=== PATIENT | female | born 1955 | race Caucasian/White ===

== ENCOUNTER → 2020-01-23 08:48 | Outpatient (BNVA) | payer OTHER, SELFPAY | PROVIDERS: Family Provider Family Medicine; PCP Family Medicine; Visit Provider Dermatology | DX: D18.01 Hemangioma of skin and subcutaneous tissue (principal); I78.1 Nevus, non-neoplastic; L57.0 Actinic keratosis; Z12.83 Encounter for screening for malignant neoplasm of skin | CPT/HCPCS: 17000; 17003; 99203 ==

== ENCOUNTER 2020-03-14 12:51 | Outpatient (CLI) | payer OTHER, SELFPAY ==
--- NOTE | 2020-03-14 13:08 | MM_ITS ---
WS: [id number] BILATERAL SCREENING DIGITAL MAMMOGRAM WITH CAD HISTORY: SCREENING COMPARISON: 02/23/2019 and 02/17/2017 Bilateral CC and MLO views submitted. Computer aided detection analyzed. Breast composition: The breasts are almost entirely fatty. No suspicious masses, microcalcifications or architectural distortion. Benign calcifications RIGHT breast. MM/[place] [id number] IMPRESSION: BI-RADS: 2-Benign FOLLOW UP: 1 Year Follow-up
== END 2020-03-14 12:52 | disposition home or self-care (01) ==
LOC: RADSHAW 12:55
PROVIDERS: PCP Family Medicine; Visit Provider Obstetrics & Gynecology
DX: Z12.31 Encounter for screening mammogram for malignant neoplasm of breast (principal)
CPT/HCPCS: 77067

== ENCOUNTER → 2020-03-21 11:10 | Outpatient (BNVA) | payer OTHER, SELFPAY | PROVIDERS: PCP Family Medicine; Visit Provider Podiatrist Foot & Ankle Surgery | DX: G90.09 Other idiopathic peripheral autonomic neuropathy (principal); M72.2 Plantar fascial fibromatosis; M79.671 Pain in right foot; M79.672 Pain in left foot | CPT/HCPCS: 73630 ==

== ENCOUNTER 2020-03-21 11:57 | Outpatient (CLI) | payer OTHER, SELFPAY ==
--- NOTE | 2020-03-21 12:04 | XRR_ITS ---
PROCEDURE INFORMATION: Exam: XR Right Hand Exam date and time: 03/21/2020 12:18 PM Age: 65 years old Clinical indication: Pain; Hand; Bilateral; Additional info: R hand pain TECHNIQUE: Imaging protocol: XR Right hand. Views: 1 or 2 views. COMPARISON: No relevant prior studies available. FINDINGS: Bones/joints: Normal. Soft tissues: Normal. XR/XR hand RT 2V [id number] IMPRESSION: No acute findings.
--- NOTE | 2020-03-21 12:04 | XRR_ITS ---
PROCEDURE INFORMATION: Exam: XR Left Hand Exam date and time: 03/21/2020 12:18 PM Age: 65 years old Clinical indication: Pain; Hand; Bilateral; Additional info: R hand pain TECHNIQUE: Imaging protocol: XR Left hand. Views: 3 or more views. COMPARISON: No relevant prior studies available. FINDINGS: Bones/joints: Normal. Soft tissues: Normal. XR/XR hand LT 2V [id number] IMPRESSION: No acute findings.
== END 2020-03-21 11:58 | disposition home or self-care (01) ==
LOC: RAD 12:00
PROVIDERS: PCP Family Medicine; Visit Provider Family Medicine
DX: M79.641 Pain in right hand (principal); M79.642 Pain in left hand
CPT/HCPCS: 73120; 88175

== ENCOUNTER → 2020-04-05 14:26 | Outpatient (BNVA) | payer OTHER, SELFPAY | PROVIDERS: PCP Family Medicine; Visit Provider Internal Medicine | DX: M06.9 Rheumatoid arthritis, unspecified (principal); D86.9 Sarcoidosis, unspecified | CPT/HCPCS: 99204 ==

== ENCOUNTER → 2020-04-06 10:36 | Outpatient (BNVA) | payer OTHER, SELFPAY | PROVIDERS: PCP Family Medicine; Visit Provider Internal Medicine | DX: M06.9 Rheumatoid arthritis, unspecified (principal); Z79.899 Other long term (current) drug therapy; Z11.59 Encounter for screening for other viral diseases | CPT/HCPCS: 36415; 80053; 85025; 86704; 86803; 86812; 87340 ==

== ENCOUNTER → 2020-04-18 15:41 | Outpatient (BNVA) | payer OTHER, SELFPAY | PROVIDERS: PCP Family Medicine; Visit Provider Dermatology | DX: D48.9 Neoplasm of uncertain behavior, unspecified (principal) | CPT/HCPCS: 88304 ==

== ENCOUNTER → 2020-04-26 10:58 | Outpatient (BNVA) | payer OTHER, SELFPAY | PROVIDERS: PCP Family Medicine; Visit Provider Internal Medicine | DX: M06.9 Rheumatoid arthritis, unspecified (principal) | CPT/HCPCS: 99213 ==

== ENCOUNTER 2020-05-25 09:57 | Emergency (ER) | payer OTHER, SELFPAY ==
[2020-05-25 10:13] VITALS: BP 124/79; PULSE 74; RESP 12; TEMP 36.6; O2SAT 97; BMI 25.4
[2020-05-25 10:17] VITALS: BP 133/63; PULSE 72; RESP 18; O2SAT 96
--- NOTE | 2020-05-25 10:19 | XR_ITS ---
WS: [id number] PORTABLE CHEST HISTORY: weakness COMPARISON: 05/15/2009 Lungs are clear and well expanded. Mild eventration of the RIGHT hemidiaphragm. No pneumonia. Cardiac size: Normal. Mediastinum/Aorta: Mildly prominent LEFT atrial appendage. No significant mediastinal widening. No osseous abnormality seen. XR/XR chest 1V portable [id number] IMPRESSION: No acute cardiopulmonary disease.
--- NOTE | 2020-05-25 10:19 | CT_ITS ---
WS: [id number] CT HEAD NONCONTRAST HISTORY: weakness TECHNIQUE: Contiguous axial imaging performed through the brain in 2.5 mm imaging. Bone and soft tiss ue windows. Sagittal and coronal reformats reviewed. All CT scans at [facility] use at ast one of these dose optimization techniques: automated exposure control; mA and/or kV adjustment pe r patient size (includes targeted exams where dose is matched to clinical indication); or iterative r econstruction. DLP: 774.9 mGy.cm COMPARISON: None available. No acute intracranial hemorrhage, midline shift or mass effect. Mild atrophy and mild chronic microvascular ischemic disease. No prior infarct. Ventricles: Normal size with no hydrocephalus. Paranasal sinuses: As visualized are clear. Mastoid air cells: Well pneumatized. Calvarium and scalp: Skull is intact with no soft tissue edema or swelling. CT/CT head wo con* [id number] IMPRESSION: 1. No acute intracranial hemorrhage or edema. 2. Mild atrophy and chronic ischemic disease.
--- NOTE | 2020-05-25 10:20 | ECG_ITS ---
[facility] Test Date: 2020-05-25 Pat Name: Yanet Sheth Department: Room: Gender: Female Call Center Assistant: : [id number] Requested By: Aaron Haro Order Number: [id number] Asher MD: Sammie Merrill M.D. Measurements Intervals [place] Rate: 69 P: 47 AK: 189 QRS: 29 QRSD: 102 T: 24 QT: 365 QTc: 394 Interpretive Statements SINUS RHYTHM LOW QRS VOLTAGE IN PRECORDIAL LEADS [QRS DEFLECTION < 1.0 mV IN CHEST LEADS] No previous ECG available for comparison Electronically Signed On 05-25-2020 20:50:56 [employer]EL[employer]ISTER [employer] by Sammie Merrill M.D. [id number]
--- NOTE | 2020-05-25 10:22 | ED_ITS ---
Documented by User: VINCENZO Ansari 05/25/20 16:38 HPI - Weakness General: Chief complaint: Weakness Stated complaint: weakness Time Seen by Provider: 05/25/20 10:19 History of Present Illness: HPI Narrative: Patient is a 65-year-old female comes to the ED with generalized weakness. Symptoms started last night around 9 PM. She says she feels very weak and describes it as a full body weakness. This morning she was trying to put a picture on the wall and then started getting even more weakness and had to sit down. is present and says that she then started crying and getting upset and she seemed to be having trouble speaking and her words were slurred. said that speech symptoms have greatly improved upon arrival here in the ED. She says she has never had an episode like this in the past. She has been working hard in the past couple days remodeling a home and planning a [employer] alliance party. She has been eating and drinking fluids normally. denies any weakness or numbness or tingling to one side of her body. Patient was tested for Covid approximately a week and a half ago and it was negative. Denies fever, chills, chest pain, shortness of breath, abdominal pain, diarrhea, nausea/vomiting, constipation, blood in the stool, dysuria or hematuria. Associated symptoms: Denies chest pain, chills, dysuria, fever(s), headache(s), nausea or vomiting Review of Systems Const: Reports: fatigue (generalized weakness) and malaise; Denies: fever(s), chills or change in appetite Eyes: Denies: change in vision or eye discomfort ENMT: Denies: throat pain, odynophagia, nasal discharge or nasal congestion Card: Denies: chest pain, palpitations, edema, swelling of feet/ankles, dyspnea on exertion or orthopnea Resp: Denies: dyspnea, productive cough or non-productive cough GI: Denies: abdominal pain, nausea, vomiting, diarrhea, constipation or hematochezia : Denies: flank pain, dysuria or hematuria Musc: Denies: neck pain, back pain or extremity swelling Skin/Breast: Denies: rash or new lesions Neuro: Reports: Slurred speech present (resolved here in the ED) and difficulty communicating thoughts; Denies: headache(s), numbness in extremities or weakness in extremities PFSH ED PFS: Medical History No pertinent past medical history Denies diabetes, asthma, hypertension, seizures, DVT/PE. PCP: Dr. Deyr Surgical History H/O repair of rotator cuff Left rotator cuff repair in 2008 S/P section x2-----1978 and 1981---------> first was viral vertical infraumbilical incision and the second one was a Pfannenstiel incision. S/P exploratory laparotomy 12/08/2002---exploratory laparotomy was done secondary to hemoperitoneum identified after the hysterectomy. Postoperative patient had significant drop in hemoglobin and nausea and as a result exploratory laparotomy was performed. The right round ligament had bleeding which was ligated. No active bleeding was noted elsewhere. The abdomen was irrigated and cleaned of clots and blood and patient was taken to the operating room. --------> these records have been scanned into the computer. S/P hysterectomy She had an ABDOMINAL SUPRACERVICAL HYSTERECTOMY WITH BILATERAL SALPINGO- OOPHORECTOMY for fibroids done in [place] in 2002. She states that after discharge she developed pain and bleeding and required multiple blood transfusions and 4 days after her hysterectomy had to be reopened to stop bleeding. She remained in the hospital for about 2 weeks after that with complications in terms of healing and bleeding. She states that a supracervical hysterectomy was performed. Denies any malignancy identified at the time of surgery. Surgery was performed via vertical midline incision. -------> history and physical note from Dr. Odessa Mina obtained-patient had and 15 x 5.6 x 8 cm uterus with menorrhagia causing anemia with a hemoglobin of 9-10. Operative report was reviewed and supracervical abdominal hysterectomy with bilateral salpingo-oophorectomy was performed. Although patient had wanted her cervix removed a supracervical procedure was performed and the endocervical canal was cauterized with the Bovie. --- >Pathology showed a 292 g uterine corpus with multiple fibroids, fetus cystadenofibroma in the right ovary, bilateral tubes showed no diagnostic abnormality and the left ovary showing no diagnostic abnormality S/P inguinal hernia repair Right sided inguinal hernia repair in 1980 S/P tubal ligation Done at time of second in 1981 Family History Mother Hyperlipidemia Brother Hyperlipidemia Diabetes Father Heart disease Denies family history of Colon cancer Ovarian cancer Breast cancer Hypertension Uterine cancer Thyroid condition Social History Smoking and tobacco status: never smoked Alcohol intake: never Marital status: Physical Exam Const: COMMON NORMALS: patient oriented x3 HENMT: COMMON NORMALS: normocephalic HEAD & SCALP: normocephalic MOUTH: Normal oral and palatal mucosa present THROAT: posterior oropharynx normal and uvula midline Eye: COMMON NORMALS: Equal, round and reactive pupils present, EOMs intact bilaterally, conjunctivae normal and normal visual whiting by confrontation CONJUNCTIVA: Yes conjunctivae normal PUPIL: Yes Equal, round and reactive pupils present Neck/C-Spine: COMMON NORMALS: supple GENERAL: Yes normal visual inspection Resp: COMMON NORMALS: normal respiratory effort, No retractions, No use of accessory muscles and clear to auscultation bilaterally AUSCULTATION: clear to auscultation bilaterally Cardio: COMMON NORMALS: regular rate, regular rhythm, S1 normal heart sound present, S2 normal heart sound present, No gallops present (Cardio), No clicks present (Cardio), No murmurs present (Cardio) and Peripheral pulses 2+ throughout RATE: regular rate RHYTHM: regular rhythm HEART SOUNDS: S1 normal heart sound present and S2 normal heart sound present PERIPHERAL PULSES: Peripheral pulses 2+ throughout GI: COMMON NORMALS: Normal to inspection, nondistended, normoactive bowel sounds present, Soft to palpation, non-tender and no masses PALPATION: Yes Soft to palpation : COMMON NORMALS: Yes no CVA tenderness BLADDER/KIDNEY EXAM: Yes no CVA tenderness Back/Pelvis: COMMON NORMALS: no CVA tenderness Extremity: COMMON NORMALS: normal to inspection and no pedal edema Neuro: COMMON NORMALS: patient oriented x3, CN's II-XII intact bilaterally, moves all extremities, no focal motor deficits and no sensory deficits noted SPEECH: speech normal MOTOR EXAM: 5/5 motor strength present throughout and Pronator motor function not present Skin: GENERAL SKIN EXAM: dry skin Course ED course: NIHSS- 0 Reevaluation(s): Reevaluation #1: Patient says she is feeling better and is getting more strength back. About 1/4-1/3 of IV fluids have have completed and she says that she is feeling some improvement. Denies any current neurological symptoms or any trouble with speech. Time: 11:44 Reevaluation #2: After patient received 1 L of IV fluids she was feeling a lot better and was able to get up and walk around on the unit without any problems. Patient is ready to be discharged home. Time: 12:52 Vital Signs: Vital signs: Vital Signs Temperature 97.9 F 05/25/20 10:13 Pulse Rate 78 05/25/20 13:06 Respiratory Rate 16 05/25/20 13:06 Blood Pressure 117/50 05/25/20 13:06 Pulse Oximetry 96 05/25/20 13:06 MDM - Weakness MDM Narrative: Medical decision making narrative: Patient is a 65-year-old female comes to the ED with generalized weakness and slurred speech. Slurred speech resolved upon arrival to ED. Patient tested negative for COVID-19 approximately a week and a half ago. Denies chest pain, shortness of breath. Patient did say that she has been working hard renovating a house and planning a [employer] alliance party and thinks she might have been overworking herself over the past couple days. Neuro exam was normal and showed no deficits. CT of head showed no acute findings. CBC and CMP were unremarkable. Troponin negative and EKG s howed normal sinus rhythm with no ST segment elevation. Chest x-ray showed no acute findings. Influenza negative. Patient was given IV fluids and her generalized weakness did improve greatly. She was able to ambulate around the ED without any problems. Patient has a scheduled appointment with her PCP on Thursday, May 28. I talked with Dr. Clark about patient case she was good with patient being discharged with follow-up with her PCP in a couple days. Return to ED precautions given. Patient shunt told to rest over the weekend and to drink plenty of fluids and stay hydrated. Patient understood and agreed with plan. Lab Data: Attestation: I reviewed the patient's lab results. Labs: Lab Results 05/25/20 05/25/20 05/25/20 Range/Units 09:40 09:40 09:40 WBC 3.6 L (4.0-10.0) 10^3/ uL RBC 4.63 (4.1-5.3) 10^6/u L Hgb 13.7 (11.5-15.3) g/dL Hct 43.5 (37.0-47.0) % MCV 94.0 (81-99) fL MCH 29.6 (28.0-34.0) pg MCHC 31.5 (30.0-36.0) g/dL RDW 13.2 (12.1-15.1) % Plt Count 266 (130-400) 10^3/c mm MPV 10.3 (7.4-10.4) fL Neut % (Auto) 44.9 % Lymph % (Auto) 41.7 % [place] % (Auto) 10.6 % Eos % (Auto) 2.2 % Baso % (Auto) 0.6 % Neut # (Auto) 1.62 L (1.8-7.7) 10^3/u L Lymph # (Auto) 1.5 (0.8-4.8) 10^3/u L [place] # (Auto) 0.4 (0.2-0.9) 10^3/u L Eos # (Auto) 0.1 (0.0-0.8) 10^3/u L Baso # (Auto) 0.0 (0.0-0.1) 10^3/u L Nucleated RBC % (a uto) 0 % Nucleated RBCs # 0.0 /100WBC Sodium 138 (136-145) mmol/L Potassium 4.2 (3.5-5.1) mmol/L Chloride 101 (98-107) mmol/L Carbon Dioxide 27 (22-29) mmol/L Anion Gap 14.2 (5-19) BUN 17 (8-23) mg/dL Creatinine 0.9 (0.5-0.9) mg/dL GFR Calculation 63.0 L (90-130) mL/min Glucose 76 (65-115) mg/dL Calculated Osmolal ity 286 (285-295) mOsm/k g Calcium 9.5 (8.5-10.5) mg/dL Total Bilirubin 0.3 (0.15-1.2) mg/dL AST 17 (0-32) U/L ALT 21 (0-33) U/L Alkaline Phosphata se 74 (35-105) IU/L Troponin T Baselin e 6 (0-10) ng/L Troponin T 120 Min [place] (0-10) ng/L Delta Troponin T (0-10) ABS# Total Protein 6.6 (6.6-8.7) g/dL Albumin 4.2 (3.5-5.2) g/dL Globulin 2.4 (1.3-4.6) g/dL Urine Color (Yellow) Urine Appearance (CLEAR) Urine pH (5-7) Ur Specific Gravit y (1.005-1.030) Urine Protein (Negative) Urine Glucose (UA) (Normal) Urine Ketones (Negative) Urine Blood (Negative) Urine Nitrate (Negative) Urine Bilirubin (Negative) Urine Urobilinogen (Negative) mg/dL Ur Leukocyte Aydee ase (Negative) Urine RBC (0-2) /hpf Urine WBC (0-5) /hpf Ur Squamous Epith Cells (0-5) /hpf Amorphous Sediment Urine Bacteria (NONE) /hpf Influenza Type A A g (Negative) Influenza Type B A g (Negative) 05/25/20 05/25/20 05/25/20 Range/Units 10:44 11:18 12:04 WBC (4.0-10.0) 10^3/ uL RBC (4.1-5.3) 10^6/u L Hgb (11.5-15.3) g/dL Hct (37.0-47.0) % MCV (81-99) fL MCH (28.0-34.0) pg MCHC (30.0-36.0) g/dL RDW (12.1-15.1) % Plt Count (130-400) 10^3/c mm MPV (7.4-10.4) fL Neut % (Auto) % Lymph % (Auto) % [place] % (Auto) % Eos % (Auto) % Baso % (Auto) % Neut # (Auto) (1.8-7.7) 10^3/u L Lymph # (Auto) (0.8-4.8) 10^3/u L [place] # (Auto) (0.2-0.9) 10^3/u L Eos # (Auto) (0.0-0.8) 10^3/u L Baso # (Auto) (0.0-0.1) 10^3/u L Nucleated RBC % (a uto) % Nucleated RBCs # /100WBC Sodium (136-145) mmol/L Potassium (3.5-5.1) mmol/L Chloride (98-107) mmol/L Carbon Dioxide (22-29) mmol/L Anion Gap (5-19) BUN (8-23) mg/dL Creatinine (0.5-0.9) mg/dL GFR Calculation (90-130) mL/min Glucose (65-115) mg/dL Calculated Osmolal ity (285-295) mOsm/k g Calcium (8.5-10.5) mg/dL Total Bilirubin (0.15-1.2) mg/dL AST (0-32) U/L ALT (0-33) U/L Alkaline Phosphata se (35-105) IU/L Troponin T Baselin e (0-10) ng/L Troponin T 120 Min [place] 6.16 (0-10) ng/L Delta Troponin T 0.16 (0-10) ABS# Total Protein (6.6-8.7) g/dL Albumin (3.5-5.2) g/dL Globulin (1.3-4.6) g/dL Urine Color Yellow (Yellow) Urine Appearance Clear (CLEAR) Urine pH 7 (5-7) Ur Specific Gravit y 1.010 (1.005-1.030) Urine Protein Neg (Negative) Urine Glucose (UA) Norm (Normal) Urine Ketones Negative (Negative) Urine Blood Neg (Negative) Urine Nitrate Negative (Negative) Urine Bilirubin Neg (Negative) Urine Urobilinogen Norm (Negative) mg/dL Ur Leukocyte Aydee ase Negative (Negative) Urine RBC None (0-2) /hpf Urine WBC 0-4 H (0-5) /hpf Ur Squamous Epith Cells 0-4 H (0-5) /hpf Amorphous Sediment Not Reportable Urine Bacteria Trace (NONE) /hpf Influenza Type A A g Negative (Negative) Influenza Type B A g Negative (Negative) Imaging Data^: CT Head: Attestation: I personally reviewed and interpreted this imaging study as follows: Radiologist's impression: [address] [address] [address] Scan Report Signed Patient: Yanet Sheth Unit #: [id number] : 1955 Age/Sex: 65 / F ADM Date: 05/25/20 Loc: ER Room/Bed: Attending Dr: Ordering Provider/Ordering MD: Aaron Haro Date of Service: 05/25/20 Procedure(s): CT head wo con* [id number] Accession Number(s): [id number] Report Number: [id number] WS: [id number] CT HEAD NONCONTRAST HISTORY: weakness TECHNIQUE: Contiguous axial imaging performed through the brain in 2.5 mm imaging. Bone and soft tissue windows. Sagittal and coronal reformats reviewed. All CT scans at [facility] use at least one of these dose optimization techniques: automated exposure control; mA and/or kV adjustment per patient size (includes targeted exams where dose is matched to clinical indication); or iterative reconstruction. DLP: 774.9 mGy.cm COMPARISON: None available. No acute intracranial hemorrhage, midline shift or mass effect. Mild atrophy and mild chronic microvascular ischemic disease. No prior infarct. Ventricles: Normal size with no hydrocephalus. Paranasal sinuses: As visualized are clear. Mastoid air cells: Well pneumatized. Calvarium and scalp: Skull is intact with no soft tissue edema or swelling. CT/CT head wo con* [id number] IMPRESSION: 1. No acute intracranial hemorrhage or edema. 2. Mild atrophy and chronic ischemic disease. Dictated By: Kinza Jon DO Signed By: Kinza Jon DO Signed Date/Time: 05/25/20 1100 DD/ 1058 CXR: Attestation: I personally reviewed and interpreted this imaging study as follows: Radiologist's impression: [facility] [address] [place] [address] XRay Report Signed Patient: Yanet Sheth Unit #: [id number] : 1955 Age/Sex: 65 / F ADM Date: 05/25/20 Loc: ER Room/Bed: Attending Dr: Ordering Provider/Ordering MD: Aaron Haro Date of Service: 05/25/20 Procedure(s): XR chest 1V portable [id number] Accession Number(s): [id number] Report Number: [id number] WS: [id number] PORTABLE CHEST HISTORY: weakness COMPARISON: 05/15/2009 Lungs are clear and well expanded. Mild eventration of the RIGHT hemidiaphragm. No pneumonia. Cardiac size: Normal. Mediastinum/Aorta: Mildly prominent LEFT atrial appendage. No significant mediastinal widening. No osseous abnormality seen. XR/XR chest 1V portable [id number] IMPRESSION: No acute cardiopulmonary disease. Dictated By: Kinza Jon DO Signed By: Kinza Jon DO Signed Date/Time: 05/25/20 1032 DD/ 1031 EKG Data^: EKG 1: Attestation: I personally reviewed and interpreted this EKG as follows: EKG interpretation date: 05/25/20 Interpretation: Normal sinus rhythm, 69 bpm, no ST segment elevation or depression seen. Discharge Plan Discharge Patient Disposition: Home Clinical Impression: Generalized weakness Condition: Stable Prescriptions: No Action carbamazepine 200 mg tablet 400 mg PO BID 30 Days Qty: 120 RF: 3 azelastine 137 mcg (0.1 %) aerosol,spray 1 spray INTRANASAL BID RF: 0 Premarin 0.3 mg tablet 0.3 mg PO DAILY RF: 0 fluticasone propionate [Flonase Allergy Relief] 50 mcg/actuation spray,suspension 1 spray INTRANASAL DAILY RF: 0 diclofenac sodium [Voltaren] 1 % gel 2 gm TOPICAL BID RF: 0 aspirin [Adult Aspirin Regimen] 81 mg tablet,delayed release (DR/EC) 81 mg PO DAILY RF: 0 mupirocin 2 % ointment 1 applic topical BID Qty: 22 RF: 1 Discharge Orders: Discharge ED (Routine); Ordered 05/25/20 Ordered By: Aaron Haro Referrals: Sandeep Dyer MD [Primary Care Provider] - Discharge Diet: Regular Discharge Activity: Increase activity as tolerated Patient Instructions: Weakness (ED), Weakness (Generalized) Activity Restrictions/Additional Instructions: Follow-up with PCP at your scheduled appointment on Thursday, May 28. C ontinue taking home medications as prescribed. Rest over the weekend and make sure you are drinking plenty of fluids and staying hydrated. Return to the ER or your medical provider if condition worsens or symptoms return. Please read and understand discharge instructions. If any questions, please ask. Coding Level of Care Code ED Team Facilitator for Chg Fwd Exam Comprehensive Documented by User: Vika Clark MD 05/25/20 14:09 HPI - Weakness General: Chief complaint: Weakness Stated complaint: weakness Time Seen by Provider: 05/25/20 10:19 PFSH ED PFSH: Medical History No pertinent past medical history Denies diabetes, asthma, hypertension, seizures, DVT/PE. PCP: Dr. Dyer Surgical History H/O repair of rotator cuff Left rotator cuff repair in 2008 S/P section x2-----1978 and 1981---------> first was viral vertical infraumbilical incision and the second one was a Pfannenstiel incision. S/P exploratory laparotomy 12/08/2002---exploratory laparotomy was done secondary to hemoperitoneum identified after the hysterectomy. Postoperative patient had significant drop in hemoglobin and nausea and as a result exploratory laparotomy was performed. The right round ligament had bleeding which was ligated. No active bleeding was noted elsewhere. The abdomen was irrigated and cleaned of clots and blood and patient was taken to the operating room. --------> these records have been scanned into the computer. S/P hysterectomy She had an ABDOMINAL SUPRACERVICAL HYSTERECTOMY WITH BILATERAL SALPINGO- OOPHORECTOMY for fibroids done in [place] in 2002. She states that after discharge she developed pain and bleeding and required multiple blood transfusions and 4 days after her hysterectomy had to be reopened to stop bleeding. She remained in the hospital for about 2 weeks after that with complications in terms of healing and bleeding. She states that a supracervical hysterectomy was performed. Denies any malignancy identified at the time of surgery. Surgery was performed via vertical midline incision. -------> history and physical note from Dr. Odessa Mina obtained-patient had and 15 x 5.6 x 8 cm uterus with menorrhagia causing anemia with a hemoglobin of 9-10. Operative report was reviewed and supracervical abdominal hyster ectomy with bilateral salpingo-oophorectomy was performed. Although patient had wanted her cervix removed a supracervical procedure was performed and the endocervical canal was cauterized with the Bovie. --- >Pathology showed a 292 g uterine corpus with multiple fibroids, fetus cystadenofibroma in the right ovary, bilateral tubes showed no diagnostic abnormality and the left ovary showing no diagnostic abnormality S/P inguinal hernia repair Right sided inguinal hernia repair in 1980 S/P tubal ligation Done at time of second in 1981 Family History Mother Hyperlipidemia Brother Hyperlipidemia Diabetes Father Heart disease Denies family history of Colon cancer Ovarian cancer Breast cancer Hypertension Uterine cancer Thyroid condition Social History Smoking and tobacco status: never smoked Alcohol intake: never Marital status: Course Reevaluation(s): Reevaluation #1: I discussed this patient with Aaron - tiffanie H and P, labs, imaging. Agree with plan to discharge and encourage close outpatient evaluation - return if recurrent symptoms. Vital Signs: Vital signs: Vital Signs Temperature 97.9 F 05/25/20 10:13 Pulse Rate 78 05/25/20 13:06 Respiratory Rate 16 05/25/20 13:06 Blood Pressure 117/50 05/25/20 13:06 Pulse Oximetry 96 05/25/20 13:06 MDM - Weakness Lab Data: Labs: Lab Results 05/25/20 05/25/20 05/25/20 Range/Units 09:40 09:40 09:40 WBC 3.6 L (4.0-10.0) 10^3/ uL RBC 4.63 (4.1-5.3) 10^6/u L Hgb 13.7 (11.5-15.3) g/dL Hct 43.5 (37.0-47.0) % MCV 94.0 (81-99) fL MCH 29.6 (28.0-34.0) pg MCHC 31.5 (30.0-36.0) g/dL RDW 13.2 (12.1-15.1) % Plt Count 266 (130-400) 10^3/c mm MPV 10.3 (7.4-10.4) fL Neut % (Auto) 44.9 % Lymph % (Auto) 41.7 % [place] % (Auto) 10.6 % Eos % (Auto) 2.2 % Baso % (Auto) 0.6 % Neut # (Auto) 1.62 L (1.8-7.7) 10^3/u L Lymph # (Auto) 1.5 (0.8-4.8) 10^3/u L [place] # (Auto) 0.4 (0.2-0.9) 10^3/u L Eos # (Auto) 0.1 (0.0-0.8) 10^3/u L Baso # (Auto) 0.0 (0.0-0.1) 10^3/u L Nucleated RBC % (a uto) 0 % Nucleated RBCs # 0.0 /100WBC Sodium 138 (136-145) mmol/L Potassium 4.2 (3.5-5.1) mmol/L Chloride 101 (98-107) mmol/L Carbon Dioxide 27 (22-29) mmol/L Anion Gap 14.2 (5-19) BUN 17 (8-23) mg/dL Creatinine 0.9 (0.5-0.9) mg/dL GFR Calculation 63.0 L (90-130) mL/min Glucose 76 (65-115) mg/dL Calculated Osmolal ity 286 (285-295) mOsm/k g Calcium 9.5 (8.5-10.5) mg/dL Total Bilirubin 0.3 (0.15-1.2) mg/dL AST 17 (0-32) U/L ALT 21 (0-33) U/L Alkaline Phosphata se 74 (35-105) IU/L Troponin T Baselin e 6 (0-10) ng/L Troponin T 120 Min [place] (0-10) ng/L Delta Troponin T (0-10) ABS# Total Protein 6.6 (6.6-8.7) g/dL Albumin 4.2 (3.5-5.2) g/dL Globulin 2.4 (1.3-4.6) g/dL Urine Color (Yellow) Urine Appearance (CLEAR) Urine pH (5-7) Ur Specific Gravit y (1.005-1.030) Urine Protein (Negative) Urine Glucose (UA) (Normal) Urine Ketones (Negative) Urine Blood (Negative) Urine Nitrate (Negative) Urine Bilirubin (Negative) Urine Urobilinogen (Negative) mg/dL Ur Leukocyte Aydee ase (Negative) Urine RBC (0-2) /hpf Urine WBC (0-5) /hpf Ur Squamous Epith Cells (0-5) /hpf Amorphous Sediment Urine Bacteria (NONE) /hpf Influenza Type A A g (Negative) Influenza Type B A g (Negative) 05/25/20 05/25/20 05/25/20 Range/Units 10:44 11:18 12:04 WBC (4.0-10.0) 10^3/ uL RBC (4.1-5.3) 10^6/u L Hgb (11.5-15.3) g/dL Hct (37.0-47.0) % MCV (81-99) fL MCH (28.0-34.0) pg MCHC (30.0-36.0) g/dL RDW (12.1-15.1) % Plt Count (130-400) 10^3/c mm MPV (7.4-10.4) fL Neut % (Auto) % Lymph % (Auto) % [place] % (Auto) % Eos % (Auto) % Baso % (Auto) % Neut # (Auto) (1.8-7.7) 10^3/u L Lymph # (Auto) (0.8-4.8) 10^3/u L [place] # (Auto) (0.2-0.9) 10^3/u L Eos # (Auto) (0.0-0.8) 10^3/u L Baso # (Auto) (0.0-0.1) 10^3/u L Nucleated RBC % (a uto) % Nucleated RBCs # /100WBC Sodium (136-145) mmol/L Potassium (3.5-5.1) mmol/L Chloride (98-107) mmol/L Carbon Dioxide (22-29) mmol/L Anion Gap (5-19) BUN (8-23) mg/dL Creatinine (0.5-0.9) mg/dL GFR Calculation (90-130) mL/min Glucose (65-115) mg/dL Calculated Osmolal ity (285-295) mOsm/k g Calcium (8.5-10.5) mg/dL Total Bilirubin (0.15-1.2) mg/dL AST (0-32) U/L ALT (0-33) U/L Alkaline Phosphata se (35-105) IU/L Troponin T Baselin e (0-10) ng/L Troponin T 120 Min [place] 6.16 (0-10) ng/L Delta Troponin T 0.16 (0-10) ABS# Total Protein (6.6-8.7) g/dL Albumin (3.5-5.2) g/dL Globulin (1.3-4.6) g/dL Urine Color Yellow (Yellow) Urine Appearance Clear (CLEAR) Urine pH 7 (5-7) Ur Specific Gravit y 1.010 (1.005-1.030) Urine Protein Neg (Negative) Urine Glucose (UA) Norm (Normal) Urine Ketones Negative (Negative) Urine Blood Neg (Negative) Urine Nitrate Negative (Negative) Urine Bilirubin Neg (Negative) Urine Urobilinogen Norm (Negative) mg/dL Ur Leukocyte Aydee ase Negative (Negative) Urine RBC None (0-2) /hpf Urine WBC 0-4 H (0-5) /hpf Ur Squamous Epith Cells 0-4 H (0-5) /hpf Amorphous Sediment Not Reportable Urine Bacteria Trace (NONE) /hpf Influenza Type A A g Negative (Negative) Influenza Type B A g Negative (Negative) Discharge Plan Discharge Patient Disposition: Home Clinical Impression: Generalized weakness Condition: Stable Prescriptions: No Action carbamazepine 200 mg tablet 400 mg PO BID 30 Days Qty: 120 RF: 3 azelastine 137 mcg (0.1 %) aerosol,spray 1 spray INTRANASAL BID RF: 0 Premarin 0.3 mg tablet 0.3 mg PO DAILY RF: 0 fluticasone propionate [Flonase Allergy Relief] 50 mcg/actuation spray,suspension 1 spray INTRANASAL DAILY RF: 0 diclofenac sodium [Voltaren] 1 % gel 2 gm TOPICAL BID RF: 0 aspirin [Adult Aspirin Regimen] 81 mg tablet,delayed release (DR/EC) 81 mg PO DAILY RF: 0 mupirocin 2 % ointment 1 applic topical BID Qty: 22 RF: 1 Discharge Orders: Discharge ED (Routine); Ordered 05/25/20 Ordered By: Aaron Haro Referrals: Sandeep Dyer MD [Primary Care Provider] - Discharge Diet: Regular Discharge Activity: Increase activity as tolerated Patient Instructions: Weakness (ED), Weakness (Generalized) Activity Restrictions/Additional Instructions: Follow-up with PCP at your scheduled appointment on Thursday, May 28. Continue taking home medications as prescribed. Rest over the weekend and make sure you are drinking plenty of fluids and staying hydrated. Return to the ER or your medical provider if condition worsens or symptoms return. Please read and understand discharge instructions. If any questions, please ask. Coding Level of Care Code ED Team Facilitator for Chg Fwd Exam Comprehensive
[2020-05-25 10:35] LABS: Basophils % 0.6 %; Eosinophils # 0.1 10^3/uL (0.0-0.8); Eosinophils % 2.2 %; Hematocrit 43.5 % (37.0-47.0); Hemoglobin 13.7 g/dL (11.5-15.3); Lymphocytes # 1.5 10^3/uL (0.8-4.8); Lymphocytes % 41.7 %; Mean Corpuscular HGB Conc 31.5 g/dL (30.0-36.0); Mean Corpuscular Hemoglobin 29.6 pg (28.0-34.0); Mean Platelet Volume 10.3 fL (7.4-10.4); Monocytes # 0.4 10^3/uL (0.2-0.9); Monocytes % 10.6 %; Neutrophils # 1.62 10^3/uL (1.8-7.7); Neutrophils % 44.9 %; Nucleated Red Blood Cells % 0 %; Platelet Count 266 10^3/cmm (130-400); Red Blood Count 4.63 10^6/uL (4.1-5.3); Red Cell Distribution Width 13.2 % (12.1-15.1); White Blood Count 3.6 10^3/uL (4.0-10.0)
[2020-05-25 10:47] VITALS: BP 133/63; PULSE 71; RESP 18; O2SAT 97
[2020-05-25 10:56] LABS: Alanine Aminotransferase 21 U/L (0-33); Albumin Level 4.2 g/dL (3.5-5.2); Alkaline Phosphatase 74 IU/L (35-105); Anion Gap 14.2 (5-19); Aspartate Amino Transferase 17 U/L (0-32); Blood Urea Nitrogen 17 mg/dL (8-23); Calcium 9.5 mg/dL (8.5-10.5); Carbon Dioxide 27 mmol/L (22-29); Chloride 101 mmol/L (98-107); Globulin 2.4 g/dL (1.3-4.6); Glucose 76 mg/dL (65-115); Osmolality Calculated 286 mOsm/kg (285-295); Potassium 4.2 mmol/L (3.5-5.1); Sodium 138 mmol/L (136-145); Total Bilirubin 0.3 mg/dL (0.15-1.2); Total Protein 6.6 g/dL (6.6-8.7)
[2020-05-25 11:00] LABS: Troponin(5th) Baseline 6 ng/L (0-10)
[2020-05-25] MEDS: sodium chloride 0.9% 1,000 ML 999 ML IV (11:25)
[2020-05-25 11:26] LABS: Influenza A by IFA Negative (Negative); Influenza B by IFA Negative (Negative)
[2020-05-25 11:56] LABS: Add Urine Culture? No; Bacteria Urine TRACE /hpf; Bilirubin Urine Neg (Negative); Blood Urine Neg (Negative); Glucose Urine UA Norm (Normal); Ketones Urine Negative (Negative); Leukocyte Esterase Urine Negative (Negative); Nitrate Urine Negative (Negative); Protein Urine Neg (Negative); Squamous Epithelial Cell Urine 0-4 /hpf (0-5); Urine Appearance Clear (CLEAR); Urine Color Yellow (Yellow); Urobilinogen Urine Norm (Negative); WBC Urine 0-4 /hpf (0-5); pH Urine 7 (5-7)
[2020-05-25 12:28] LABS: Troponin 5 2HR 6.16 ng/L (0-10); Troponin 5 2HR Delta 0.16 ABS# (0-10)
[2020-05-25 13:06] VITALS: BP 117/50; PULSE 78; RESP 16; O2SAT 96
--- NOTE | 2020-05-26 06:34 | PC.NURSE ---
Lab called 1 of 2 blood culture bottles is positive with gram + cocci in clusters. Notified Dr. Lloyd. Ordered to wait for final culture result
== END 2020-05-25 13:07 | disposition home or self-care (01) ==
PROVIDERS: Emergency Provider Physician Assistant; PCP Family Medicine
DX: R53.1 Weakness (principal)
CPT/HCPCS: 12345; 70450; 71045; 80053; 81001; 84484; 85025; 87040; 87205; 87804; 93005; 96360; 99282; 99283; J7030

== ENCOUNTER 2020-09-10 07:50 | Outpatient (CLI) | payer OTHER, SELFPAY ==
--- NOTE | 2020-09-10 07:54 | MR_ITS ---
WS: [id number] MRI BRAIN WITH AND WITHOUT CONTRAST HISTORY: ATYPICAL headache, chronic NECK PAIN, WEAKNESS OF LIMB; COMPARISON: CT head 05/25/2020 TECHNIQUE: Multiplanar imaging performed through the brain with MultiHance 13 ml's IV. No acute infarcts are seen. Mckinley-white matter differentiation is well preserved. No susceptibility artifacts or prior lacunar infarcts. Ventricles and extra-axial spaces are normal. Clivus and pituitary gland are normal. Visualized posterior fossa and brainstem are also normal. Postcontrast images are negative for masses or vascular malformations. Dural venous sinuses are normal. Paranasal sinuses: Well aerated with no significant disease. Mastoid air cells: Normal. Calvarium and scalp: Normal. MR/MR head wo/w con [id number] IMPRESSION: 1. Normal MRI brain with contrast. 2. No significant sinus disease.
--- NOTE | 2020-09-10 07:54 | MR_ITS ---
WS: [id number] MRI CERVICAL SPINE NONCONTRAST HISTORY: ATYPICAL headache, chronic NECK PAIN, WEAKNESS OF LIMB; COMPARISON: None available. Technique: Multiplanar, multisequence noncontrast imaging of the cervical spine. Very slight increase in the cervical lordosis. Mild RIGHT curvature cervical spine. Disc spaces are mildly narrowed and desiccated. Most significant narrowing is at C5-6 and C6-7. No fr actures or marrow edema. Craniocervical junction, C1 and C2 relationship, odontoid process and soft tissues are normal. C2-C3: Normal. C3-C4: Normal. C4-C5: Very mild osteophytic ridging and disc bulging. Slight encroachment upon the ventral thecal sa c and mild narrowing of the RIGHT foramen. No high-grade stenosis. C5-C6: Moderate annular disc bulging with a central disc protrusion and osteophytic ridging. Mild raul tral stenosis with moderate bilateral foraminal stenosis. C6-C7: Diffuse annular disc bulging and osteophytic ridging with a central disc protrusion and annula r fissure. There is slight disc contact upon the ventral cord with bilateral foraminal stenosis due t o disc osteophyte disease. C7-T1: Central disc protrusion is small. No cord contact. Large RIGHT thyroid nodule with central necrosis measures 2.4 x 1.9 cm. Nodule extends over length of 3.5 cm. MR/MR cervical spin wo con* [id number] IMPRESSION: 1. 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 2. Large RIGHT thyroid nodule. Recommend ultrasound follow-up for further italo acterization. 3. Mild RIGHT foraminal narrowing at C4-5.
[2020-09-10 09:30] LABS: Blood Urea Nitrogen 17 mg/dL (8-23); Glomerular Filtration Rate 84.2 mL/min (90-130)
[2020-09-10] MEDS: gadobenate dimeglumine 20 mL vial IV (09:33)
== END 2020-09-10 07:51 | disposition home or self-care (01) ==
PROVIDERS: PCP Family Medicine; Visit Provider Family Medicine
DX: R51.9 Headache, unspecified (principal); M54.2 Cervicalgia
CPT/HCPCS: 70553; 72141; 82565; 84520; A9577

== ENCOUNTER → 2020-09-11 08:06 | Outpatient (BNVA) | payer OTHER, SELFPAY | PROVIDERS: PCP Family Medicine; Visit Provider Specialist | DX: R51.9 Headache, unspecified (principal); M54.2 Cervicalgia; R29.898 Other symptoms and signs involving the musculoskeletal system | CPT/HCPCS: 95913 ==

== ENCOUNTER 2020-10-03 08:25 | Outpatient (CLI) | payer OTHER, SELFPAY ==
--- NOTE | 2020-10-03 08:32 | US_ITS ---
WS: [id number] ULTRASOUND THYROID TECHNIQUE: Ultrasound of the thyroid. CLINICAL INFORMATION: THYROID NODULE COMPARISON: None. FINDINGS: Thyroid: Right and left thyroid lobes are normal in size and echotexture. Bilateral thyroid nodules. Right thyroid lobe: 3.5 cm x 2.1 cm x 2.0 cm Solid heterogeneous right thyroid nodule measures 2.1 x 3.3 x 2.0 cm Left thyroid lobe: 4.9 cm x 1.2 cm x 2.6 cm. Largest left solid thyroid nodule measures 1.1 x 2.5 x 1.6 cm Isthmus: 0.3 mm. Cervical lymphadenopathy: None. US/US thyroid [id number] IMPRESSION: 1. Heterogeneous thyroid echotexture bilaterally. 2. Large solid heterogeneous right thyroid nodule measuring 2.1 x 3.3 x 2.0 CM . Recommend further evaluation with ultrasound-guided FNA. 3. Dominant left-sided nodule measures 1.1 x 2.5 x 1.6 cm. Recommend 12 month follow-up.
== END 2020-10-03 08:26 | disposition home or self-care (01) ==
LOC: US 08:28
PROVIDERS: PCP Family Medicine; Visit Provider Family Medicine
DX: E04.1 Nontoxic single thyroid nodule (principal)
CPT/HCPCS: 76536

== ENCOUNTER 2020-11-07 10:46 | Outpatient (CLI) | payer OTHER, SELFPAY ==
[2020-11-07 11:07] LABS: Basophils % 0.5 %; Eosinophils # 0.2 10^3/uL (0.0-0.8); Eosinophils % 2.9 %; Hematocrit 43.3 % (37.0-47.0); Hemoglobin 13.4 g/dL (11.5-15.3); Lymphocytes % 35.7 %; Mean Corpuscular HGB Conc 30.9 g/dL (30.0-36.0); Mean Corpuscular Hemoglobin 29.9 pg (28.0-34.0); Mean Corpuscular Volume 96.7 fL (81-99); Mean Platelet Volume 9.9 fL (7.4-10.4); Monocytes # 0.4 10^3/uL (0.2-0.9); Monocytes % 6.8 %; Neutrophils # 2.99 10^3/uL (1.8-7.7); Neutrophils % 53.9 %; Nucleated Red Blood Cells % 0 %; Platelet Count 232 10^3/cmm (130-400); Red Blood Count 4.48 10^6/uL (4.1-5.3); Red Cell Distribution Width 12.5 % (12.1-15.1); White Blood Count 5.6 10^3/uL (4.0-10.0)
[2020-11-07 11:27] LABS: Alanine Aminotransferase 9 U/L (0-33); Alkaline Phosphatase 73 IU/L (35-105); Anion Gap 10.6 (5-19); Aspartate Amino Transferase 11 U/L (0-32); Blood Urea Nitrogen 16 mg/dL (8-23); C Reactive Protein 3.6 mg/L (0.0-4.9); Carbon Dioxide 29 mmol/L (22-29); Chloride 103 mmol/L (98-107); Globulin 2.8 g/dL (1.3-4.6); Glomerular Filtration Rate 84.2 mL/min (90-130); Glucose 97 mg/dL (65-115); Osmolality Calculated 287 mOsm/kg (285-295); Potassium 4.6 mmol/L (3.5-5.1); Sodium 138 mmol/L (136-145); Total Bilirubin 0.2 mg/dL (0.15-1.2); Total Protein 6.8 g/dL (6.6-8.7)
[2020-11-07 13:30] LABS: Erythrocyte Sedimentation Rate 6 mm/hr (0-15)
== END 2020-11-07 10:47 | disposition home or self-care (01) ==
PROVIDERS: PCP Family Medicine; Visit Provider Internal Medicine
DX: M06.9 Rheumatoid arthritis, unspecified (principal); Z79.899 Other long term (current) drug therapy
CPT/HCPCS: 36415; 80053; 85025; 85651; 86140

== ENCOUNTER → 2020-11-08 10:35 | Outpatient (BNVA) | payer OTHER, SELFPAY | PROVIDERS: PCP Family Medicine; Visit Provider Internal Medicine | DX: M06.9 Rheumatoid arthritis, unspecified (principal); Z79.899 Other long term (current) drug therapy; M50.90 Cervical disc disorder, unspecified, unspecified cervical region; R29.898 Other symptoms and signs involving the musculoskeletal system; M48.00 Spinal stenosis, site unspecified | CPT/HCPCS: 99213; 99214 ==

== ENCOUNTER → 2020-11-23 08:42 | Outpatient (BNVA) | payer OTHER, SELFPAY | PROVIDERS: PCP Family Medicine; Referring Provider Internal Medicine; Visit Provider Anesthesiology Pain Medicine | DX: G89.29 Other chronic pain (principal); M54.16 Radiculopathy, lumbar region; M47.816 Spondylosis without myelopathy or radiculopathy, lumbar region; M54.12 Radiculopathy, cervical region; M50.90 Cervical disc disorder, unspecified, unspecified cervical region | CPT/HCPCS: 99205 ==

== ENCOUNTER 2020-12-04 07:35 | Outpatient (RCR) | payer OTHER, SELFPAY | END 2020-12-12 23:59 | disposition home or self-care (01) | LOC: SPT 07:35 | PROVIDERS: PCP Family Medicine; Referring Provider Anesthesiology Pain Medicine; Visit Provider Anesthesiology Pain Medicine | DX: G89.29 Other chronic pain (principal); M54.2 Cervicalgia | CPT/HCPCS: 62321; 97110; 97140; 97162; G0283; J1100 ==

== ENCOUNTER 2020-12-12 10:40 | Outpatient (CLI) | payer OTHER, SELFPAY ==
--- NOTE | 2020-12-12 10:58 | MR_ITS ---
WS: [id number] MRI LUMBAR SPINE NONCONTRAST HISTORY: RADICULOPATHY, LUMBAR REGION COMPARISON: None available. TECHNIQUE: Sagittal and axial multisequence imaging is submitted. Mild LEFT curvature thoracic and RIGHT curvature lumbar spine. Posterior lumbar alignment is normal. Moderate disc space narrowing and desiccation at L3-4 through L5-S1. No fractures. Conus terminates normally at L1-2 disc level. L1-L2: Very mild narrowing of the LEFT foramen with no significant stenosis. L2-L3: Mild annular disc bulging with a moderate size central disc protrusion deforming the ventral t hecal sac. Mild narrowing of the foramen. L3-L4: Moderate annular disc bulge with a central disc protrusion and annular fissure. Mild central s tenosis. Mild osteophytic ridging with facet and ligamentum flavum arthritis. Disc and osteophyte con tacts the RIGHT L4 nerve root in the lateral recess and subarticular foramen. There is additional mil d encroachment upon the LEFT L4 nerve root. Mild foraminal stenosis. L4-L5: Mild diffuse annular disc bulging with ligamentum flavum hypertrophy and facet arthritis. Mild central canal stenosis. Mild narrowing of the subarticular recesses with mild stenosis and encroachm ent upon the L5 nerve roots bilaterally. L5-S1: Mild annular disc bulging with a central shallow disc protrusion. No contact on the S1 nerve r oots. Disc protrusion in the RIGHT foramen contacting but not displacing the RIGHT L5 nerve root. Visualized retroperitoneal structures are unremarkable. RIGHT kidney is rotated anteriorly. MR/MR lumbar spine wo con* [id number] IMPRESSION: 1. Mild central stenosis at L3-4 and L4-5. 2. Central disc protrusion at L3-4 with bilateral disc osteophyte contact on t he L4 nerve roots in the lateral recesses and subarticular foramen, RIGHT great er than LEFT. 3. Mild narrowing of the subarticular recesses at L4-5 with mild stenosis and encroachment upon the L5 nerve roots. 4. Mild disc osteophyte contact on the RIGHT L5 nerve root in the far lateral foramen of L5-S1. 5. Moderate central disc protrusion at L2-3.
== END 2020-12-12 10:41 | disposition home or self-care (01) ==
LOC: RADWPI 10:40
PROVIDERS: PCP Family Medicine; Visit Provider Anesthesiology Pain Medicine
DX: M54.16 Radiculopathy, lumbar region (principal); M48.061 Spinal stenosis, lumbar region without neurogenic claudication; M51.26 Other intervertebral disc displacement, lumbar region; M25.78 Osteophyte, vertebrae
CPT/HCPCS: 72148

== ENCOUNTER 2020-12-13 06:00 | Outpatient (RCR) | payer OTHER, SELFPAY | END 2021-01-12 23:59 | disposition home or self-care (01) | LOC: SPT 06:00 | PROVIDERS: PCP Family Medicine; Referring Provider Anesthesiology Pain Medicine; Visit Provider Anesthesiology Pain Medicine | DX: G89.29 Other chronic pain (principal); M54.2 Cervicalgia | CPT/HCPCS: 97110 ==

== ENCOUNTER → 2020-12-19 10:47 | Outpatient (BNVA) | payer OTHER, SELFPAY | PROVIDERS: PCP Family Medicine; Visit Provider Anesthesiology Pain Medicine | DX: G89.29 Other chronic pain (principal); M54.12 Radiculopathy, cervical region; M50.90 Cervical disc disorder, unspecified, unspecified cervical region; M54.16 Radiculopathy, lumbar region; M79.642 Pain in left hand; M79.641 Pain in right hand | CPT/HCPCS: 99214 ==

== ENCOUNTER 2021-01-13 06:00 | Outpatient (RCR) | payer OTHER, SELFPAY | END 2021-02-12 23:59 | disposition home or self-care (01) | LOC: SPT 06:00 | PROVIDERS: PCP Family Medicine; Referring Provider Anesthesiology Pain Medicine; Visit Provider Anesthesiology Pain Medicine | DX: G89.29 Other chronic pain (principal); M54.2 Cervicalgia | CPT/HCPCS: 97110 ==

== ENCOUNTER → 2021-02-13 10:24 | Outpatient (BNVA) | payer MEDICARE, OTHER, SELFPAY | PROVIDERS: PCP Family Medicine; Visit Provider Anesthesiology Pain Medicine | DX: G89.29 Other chronic pain (principal); M54.12 Radiculopathy, cervical region; M50.90 Cervical disc disorder, unspecified, unspecified cervical region; M54.16 Radiculopathy, lumbar region | CPT/HCPCS: 99214 ==

== ENCOUNTER → 2021-03-14 10:42 | Outpatient (BNVA) | payer MEDICARE, OTHER, SELFPAY | PROVIDERS: PCP Family Medicine; Visit Provider Anesthesiology Pain Medicine | DX: G89.29 Other chronic pain (principal); M54.12 Radiculopathy, cervical region; M50.90 Cervical disc disorder, unspecified, unspecified cervical region; M54.16 Radiculopathy, lumbar region; M79.601 Pain in right arm; M79.604 Pain in right leg; M79.605 Pain in left leg | CPT/HCPCS: 99213 ==

== ENCOUNTER → 2021-04-09 10:28 | Outpatient (BNVA) | payer MEDICARE, OTHER, SELFPAY | PROVIDERS: PCP Family Medicine; Visit Provider Internal Medicine | DX: M06.9 Rheumatoid arthritis, unspecified (principal); Z79.899 Other long term (current) drug therapy | CPT/HCPCS: 36415 ==

== ENCOUNTER → 2021-04-10 16:49 | Outpatient (BNVA) | payer MEDICARE, OTHER, SELFPAY | PROVIDERS: PCP Family Medicine; Visit Provider Internal Medicine | DX: M06.9 Rheumatoid arthritis, unspecified (principal); Z79.899 Other long term (current) drug therapy | CPT/HCPCS: 80053; 85025; 85651; 86140 ==

== ENCOUNTER → 2021-04-15 10:15 | Outpatient (BNVA) | payer MEDICARE, OTHER, SELFPAY | PROVIDERS: PCP Family Medicine; Visit Provider Internal Medicine | DX: M06.9 Rheumatoid arthritis, unspecified (principal); M50.90 Cervical disc disorder, unspecified, unspecified cervical region; R53.1 Weakness | CPT/HCPCS: 99214 ==

== ENCOUNTER 2021-04-23 12:12 | Outpatient (CLI) | payer MEDICARE, OTHER, SELFPAY ==
[2021-04-23 13:15] LABS: Anion Gap 14.6 (5-19); Blood Urea Nitrogen 11 mg/dL (8-23); Carbon Dioxide 25 mmol/L (22-29); Chloride 100 mmol/L (98-107); Glomerular Filtration Rate 100.3 mL/min (90-130); Glucose 84 mg/dL (65-115); Osmolality Calculated 279 mOsm/kg (285-295); Potassium 4.6 mmol/L (3.5-5.1); Sodium 135 mmol/L (136-145)
[2021-04-25 19:25] LABS: Erythrocyte Sedimentation Rate 9 mm/hr (0-15)
== END 2021-04-23 12:13 | disposition home or self-care (01) ==
LOC: LAB 12:17
PROVIDERS: PCP Family Medicine; Visit Provider Internal Medicine
DX: M06.9 Rheumatoid arthritis, unspecified (principal); Z79.899 Other long term (current) drug therapy
CPT/HCPCS: 36415; 80048; 85651

== ENCOUNTER → 2021-05-30 09:12 | Outpatient (BNVA) | payer MEDICARE, OTHER, SELFPAY | PROVIDERS: PCP Family Medicine; Visit Provider Anesthesiology Pain Medicine | DX: G89.29 Other chronic pain (principal); M25.562 Pain in left knee; M19.90 Unspecified osteoarthritis, unspecified site; M54.12 Radiculopathy, cervical region; M50.90 Cervical disc disorder, unspecified, unspecified cervical region; M79.601 Pain in right arm; M54.16 Radiculopathy, lumbar region | CPT/HCPCS: 99214 ==

== ENCOUNTER 2021-05-31 10:06 | Outpatient (CLI) | payer MEDICARE, OTHER, SELFPAY ==
--- NOTE | 2021-05-31 10:07 | MM_ITS ---
WS: [id number] Bilateral screening digital mammogram, 05/31/2021 Clinical Data: SCREENING Comparison: 03/14/2020, 02/23/2019, 02/17/2017, 11/29/2013, 11/13/2011, 11/06/2010, 10/16/2009, 10/18/2008, 2007, 10/19/2006. Findings: The breast parenchymal pattern shows fat replacement. No spiculated masses or clustered calcification s are seen. There are no secondary signs of carcinoma. There are lymph nodes in both axilla. MM/[place] [id number] Impression: 1. Negative bilateral mammogram unchanged. 2. Recommend annual screening mammograms. BIRADS: 1-Negative FOLLOW UP: 1 Year Follow-up The CAD bill checker was used.
== END 2021-05-31 10:07 | disposition home or self-care (01) ==
PROVIDERS: PCP Family Medicine; Visit Provider Family Medicine
DX: Z12.31 Encounter for screening mammogram for malignant neoplasm of breast (principal)
CPT/HCPCS: 77067

== ENCOUNTER 2021-06-03 10:21 | Outpatient (CLI) | payer MEDICARE, OTHER, SELFPAY ==
--- NOTE | 2021-06-03 10:26 | XR_ITS ---
WS: [id number] Exam: [place] [id number] Date/Time of Exam: 06/03/2021 10:27 AM Reason For Exam: M19.90 - Unspecified osteoarthritis, unspecified site There is mild degenerative narrowing of the medial and lateral joint compartments of the left knee. J oint compartments the right knee are unremarkable. No fracture or dislocation. Normal bilateral soft tissues. XR/[place] [id number] IMPRESSION: 1. Mild degenerative narrowing of the medial and lateral joint compartments of the left knee. 2. Unremarkable AP view of the right knee.
== END 2021-06-03 10:22 | disposition home or self-care (01) ==
PROVIDERS: PCP Family Medicine; Visit Provider Anesthesiology Pain Medicine
DX: M19.90 Unspecified osteoarthritis, unspecified site (principal)
CPT/HCPCS: 73565

== ENCOUNTER 2021-06-18 10:15 | Emergency (ER) | payer MEDICARE, OTHER, SELFPAY ==
--- NOTE | 2021-06-18 11:13 | XRR_ITS ---
PROCEDURE INFORMATION: Exam: XR Left Shoulder Exam date and time: 06/18/2021 11:13 AM Age: 66 years old Clinical indication: Injury or trauma; Fall; Blunt trauma (contusions or hematomas); Shoulder; Left; Additional info: Fall, changed to shoulder per stama2 TECHNIQUE: Imaging protocol: XR Left shoulder. Views: 2 or more views. COMPARISON: CR XR chest 1V portable [id number] 05/25/2020 10:19 AM FINDINGS: Bones/joints: There is a transverse fracture surgical neck of the humerus. A faint lucency is seen in the lateral aspect of the left humeral head which also is suspicious for nondisplaced hairline fracture. This finding cannot be confirmed on other images. The remainder of the visible bones do not show abnormality. Soft tissues: Normal. XR/XR shoulder LT min 2V* [id number] IMPRESSION: Transverse fracture of the surgical neck of the humerus. Possible hairline fracture lateral humeral head
--- NOTE | 2021-06-18 11:13 | XRR_ITS ---
PROCEDURE INFORMATION: Exam: XR Left Humerus Exam date and time: 06/18/2021 11:13 AM Age: 66 years old Clinical indication: Injury or trauma; Fall; Blunt trauma (contusions or hematomas); Arm, upper; Left TECHNIQUE: Imaging protocol: XR Left humerus. Views: 2 or more views. COMPARISON: CR XR chest 1V portable [id number] 05/25/2020 10:19 AM FINDINGS: Bones/joints: There is a transverse mildly displaced fracture of the surgical neck of the left humerus. The remainder of the left humerus does not show acute abnormality. Soft tissues: Normal. XR/[place] [id number] IMPRESSION: Transverse fracture surgical neck of the left humerus
--- NOTE | 2021-06-18 11:14 | W.ED.UPPEXIN ---
Documented by User: GARTH Orlando 06/18/21 14:52 HPI - Extremity Injury (Upper) General: Chief Complaint: Extremity Injury, Upper Stated Complaint: LEFT ARM INJURY Time Seen by Provider: 06/18/21 11:14 History of Present Illness: HPI narrative: Patient with a fall earlier this morning complaining about pain left upper extremity. States she felt a pop and is hurting mid humerus area. Denies injury anywhere else. MD complaint: injury to: left and arm Onset (ago): minute(s) Other Extremity Injury: Left: arm Other injuries: none Handedness: right Place: home Severity: moderate Severity scale (1-10): 5 Relieving factors: immobilization Exacerbating factors: movement of extremity Context: fall Associated symptoms: Reports no associated symptoms Review of Systems Const: Denies: fever(s), chills or body aches Eyes: Denies: change in vision or blurry vision ENMT: Denies: throat pain or nasal congestion Card: Denies: chest pain or dyspnea on exertion Resp: Denies: dyspnea, productive cough or non-productive cough GI: Denies: abdominal pain, nausea or vomiting Musc: Reports: extremity pain (Left humerus) Skin/Breast: Denies: rash Neuro: Denies: headache(s) Psych: Denies: anxiety or depression Rubin/Lymph: Denies: easy bruising PFSH ED PFSH: Medical History History of nonmelanoma skin cancer No pertinent past medical history Denies diabetes, asthma, hypertension, seizures, DVT/PE. PCP: Dr. Dyer Surgical History H/O repair of rotator cuff Left rotator cuff repair in 2008 S/P section x2-----1978 and 1981---------> first was viral vertical infraumbilical incision and the second one was a Pfannenstiel incision. S/P exploratory laparotomy 12/08/2002---exploratory laparotomy was done secondary to hemoperitoneum identified after the hysterectomy. Postoperative patient had significant drop in hemoglobin and nausea and as a result exploratory laparotomy was performed. The right round ligament had bleeding which was ligated. No active bleeding was noted elsewhere. The abdomen was irrigated and cleaned of clots and blood and patient was taken to the operating room. --------> these records have been scanned into the computer. S/P hysterectomy She had an ABDOMINAL SUPRACERVICAL HYSTERECTOMY WITH BILATERAL SALPINGO-OOPHORECTOMY for fibroids done in [place] in 2002. She states that after discharge she developed pain and bleeding and required multiple blood transfusions and 4 days after her hysterectomy had to be reopened to stop bleeding. She remained in the hospital for about 2 weeks after that with complications in terms of healing and bleeding. She states that a supracervical hysterectomy was performed. Denies any malignancy identified at the time of surgery. Surgery was performed via vertical midline incision. -------> history and physical note from Dr. Odessa Mina obtained-patient had and 15 x 5.6 x 8 cm uterus with menorrhagia causing anemia with a hemoglobin of 9-10. Operative report was reviewed and supracervical abdominal hysterectomy with bilateral salpingo-oophorectomy was performed. Although patient had wanted her cervix removed a supracervical procedure was performed and the endocervical canal was cauterized with the Bovie. --- >Pathology showed a 292 g uterine corpus with multiple fibroids, fetus cystadenofibroma in the right ovary, bilateral tubes showed no diagnostic abnormality and the left ovary showing no diagnostic abnormality S/P inguinal hernia repair Right sided inguinal hernia repair in 1980 S/P tubal ligation Done at time of second in 1981 Family History Mother Hyperlipidemia Brother Hyperlipidemia Diabetes Father Heart disease Denies family history of Colon cancer Ovarian cancer Breast cancer Hypertension Uterine cancer Thyroid condition Social History Alcohol intake: never Marital status: History of recent travel: No Physical Exam Const: COMMON NORMALS: no acute distress, average body habitus and patient oriented x3 HENMT: COMMON NORMALS: normocephalic HEAD & SCALP: normal to inspection and normocephalic FACE & SINUS: normal facial exam Eye: COMMON NORMALS: conjunctivae normal GENERAL EYE: appearance normal, both eyes and all related structures CONJUNCTIVA: Yes conjunctivae normal Neck/C-Spine: COMMON NORMALS: no JVD Chest: COMMONS NORMALS: normal inspection of the chest Resp: COMMON NORMALS: normal respiratory effort and clear to auscultation bilaterally AUSCULTATION: clear to auscultation bilaterally Cardio: COMMON NORMALS: no JVD, regular rate and regular rhythm RATE: regular rate RHYTHM: regular rhythm GI: COMMON NORMALS: Normal to inspection, nondistended, normoactive bowel sounds present Extremity: LEFT UPPER EXTREMITY: Yes upper arm (Tenderness upper mid humerus.) Left upper arm: Yes neurovascular exam (Intact, no other injuries noted.) Neuro: COMMON NORMALS: patient oriented x3 Course Vital Signs: Vital signs: Vital Signs Pulse Rate 82 06/18/21 11:45 Respiratory Rate 18 06/18/21 11:45 Blood Pressure 136/74 06/18/21 11:45 Pulse Oximetry 96 06/18/21 11:45 Discharge Plan Discharge Patient Disposition: Home Clinical Impression: Fracture, humerus closed Qualifiers: Encounter type: initial encounter Humerus Location: surgical neck Fracture morphology: 2-part Fracture alignment: nondisplaced Laterality: left Qualified Code(s): S42.225A - 2-part nondisplaced fracture of surgical neck of left humerus, initial encounter for closed fracture Fracture of head of humerus Qualifiers: Encounter type: initial encounter Fracture type: closed Laterality: left Qualified Code(s): S42.292A - Other displaced fracture of upper end of left humerus, initial encounter for closed fracture Condition: Stable Prescriptions: New acetaminophen-codeine 300-60 mg tablet 1 - 2 tab PO Q6H PRN (Reason: pain) Qty: 20 RF: 0 No Action diclofenac sodium [Voltaren] 1 % gel 2 g topical QID Qty: 100 RF: 5 hydrocortisone 2.5 % ointment 1 applic topical BID Qty: 28.35 RF: 1 clobetasol 0.05 % ointment 1 applic topical BID 14 Days Qty: 60 RF: 2 naproxen sodium [Aleve] 220 mg tablet 220 mg PO ONCE PRNRF: 0 azelastine 137 mcg (0.1 %) aerosol,spray 1 spray INTRANASAL BID RF: 0 Premarin 0.3 mg tablet 0.3 mg PO DAILY RF: 0 fluticasone propionate [Flonase Allergy Relief] 50 mcg/actuation spray,suspension 1 spray INTRANASAL DAILY RF: 0 aspirin [Adult Aspirin Regimen] 81 mg tablet,delayed release (DR/EC) 81 mg PO DAILY RF: 0 gabapentin 600 mg tablet 600 mg PO TID 30 Days Qty: 90 RF: 3 Discharge Orders: Discharge ED (Routine); Ordered 06/18/21 Ordered By: Nolan Morton Referrals: Sandeep Dyer MD [Primary Care Provider] - Discharge Diet: Advance as tolerated Discharge Activity: Limit activity as instructed Patient Instructions: Arm Fracture in Adults (ED) Activity Restrictions/Additional Instructions: Follow-up with medical provider as directed. Take medications as prescribed. Return to the ER or your medical provider if condition worsens. Please read and understand discharge instructions. If any questions ask please. Wear sling until follow-up with orthopedic doctor. Hospital will be contacting you with an appointment for orthopedic doctor. Coding Level of Care Code ED Instrumentation And Controls Designer for Chg Fwd Exam Comprehensive Documented by User: Carter Lloyd DO 06/20/21 09:01 HPI - Extremity Injury (Upper) General: Chief Complaint: Extremity Injury, Upper Stated Complaint: LEFT ARM INJURY Time Seen by Provider: 06/18/21 11:14 History of Present Illness: HPI narrative: 66-year-old female initially seen by midlevel has proximal left arm discomfort after a fall at home. She denies strike her head did not lose consciousness. complaint: injury to: left and arm (Proximal humerus) Onset (ago): hour(s) Other injuries: none Handedness: right Place: home Severity: moderate Relieving factors: immobilization Exacerbating factors: movement of extremity Context: fall Associated symptoms: Denies crepitus, foreign body sensation, neck pain, numbness or weakness in extremities Review of Systems Const: Denies: fever(s), chills, body aches, change in appetite, fatigue or malaise ENMT: Denies: throat pain, ear or mastoid pain, nasal discharge or nasal congestion Card: Denies: chest pain, edema, dyspnea on exertion or orthopnea Resp: Denies: dyspnea, productive cough or non-productive cough GI: Denies: abdominal pain, nausea, vomiting, hematemesis, coffee ground emesis, diarrhea, constipation, bloating, hematochezia or melena : Denies: flank pain, difficulty voiding, dysuria, urinary frequency or urinary urgency Musc: Denies: neck pain Skin/Breast: Denies: rash or pruritus Neuro: Denies: weakness in extremities PFSH ED PFSH: Medical History History of nonmelanoma skin cancer No pertinent past medical history Denies diabetes, asthma, hypertension, seizures, DVT/PE. PCP: Dr. Dyer Surgical History H/O repair of rotator cuff Left rotator cuff repair in 2008 S/P section x2-----1978 and 1981---------> first was viral vertical infraumbilical incision and the second one was a Pfannenstiel incision. S/P exploratory laparotomy 12/08/2002---exploratory laparotomy was done secondary to hemoperitoneum identified after the hysterectomy. Postoperative patient had significant drop in hemoglobin and nausea and as a result exploratory laparotomy was performed. The right round ligament had bleeding which was ligated. No active bleeding was noted elsewhere. The abdomen was irrigated and cleaned of clots and blood and patient was taken to the operating room. --------> these records have been scanned into the computer. S/P hysterectomy She had an ABDOMINAL SUPRACERVICAL HYSTERECTOMY WITH BILATERAL SALPINGO-OOPHORECTOMY for fibroids done in [place] in 2002. She states that after discharge she developed pain and bleeding and required multiple blood transfusions and 4 days after her hysterectomy had to be reopened to stop bleeding. She remained in the hospital for about 2 weeks after that with complications in terms of healing and bleeding. She states that a supracervical hysterectomy was performed. Denies any malignancy identified at the time of surgery. Surgery was performed via vertical midline incision. -------> history and physical note from Dr. Odessa Mina obtained-patient had and 15 x 5.6 x 8 cm uterus with menorrhagia causing anemia with a hemoglobin of 9-10. Operative report was reviewed and supracervical abdominal hysterectomy with bilateral salpingo-oophorectomy was performed. Although patient had wanted her cervix removed a supracervical procedure was performed and the endocervical canal was cauterized with the Bovie. --- >Pathology showed a 292 g uterine corpus with multiple fibroids, fetus cystadenofibroma in the right ovary, bilateral tubes showed no diagnostic abnormality and the left ovary showing no diagnostic abnormality S/P inguinal hernia repair Right sided inguinal hernia repair in 1980 S/P tubal ligation Done at time of second in 1981 Family History Mother Hyperlipidemia Brother Hyperlipidemia Diabetes Father Heart disease Denies family history of Colon cancer Ovarian cancer Breast cancer Hypertension Uterine cancer Thyroid condition Social History Alcohol intake: never Marital status: History of recent travel: No Course Vital Signs: Vital signs: Vital Signs Pulse Rate 82 06/18/21 11:45 Respiratory Rate 18 06/18/21 11:45 Blood Pressure 136/74 06/18/21 11:45 Pulse Oximetry 96 06/18/21 11:45 MDM - Extremity Injury (Upper) MDM Narrative: Medical decision making narrative: Patient initially seen by Nolan Morton. Neurovascularly the left upper extremity is intact patient when I seen her had an ice pack attached to it and has an arm sling. Arm sling was adjusted slightly. Patient has left proximal humerus fracture we will have her follow-up with orthopedics discussed pain control with her give a written prescription of tramadol. human resources assistant manager will make arrangements for Ortho follow-up return if has further problems. Discharge Plan Discharge Patient Disposition: Home Clinical Impression: Fracture, humerus closed Qualifiers: Encounter type: initial encounter Humerus Location: surgical neck Fracture morphology: 2-part Fracture alignment: nondisplaced Laterality: left Qualified Code(s): S42.225A - 2-part nondisplaced fracture of surgical neck of left humerus, initial encounter for closed fracture Fracture of head of humerus Qualifiers: Encounter type: initial encounter Fracture type: closed Laterality: left Qualified Code(s): S42.292A - Other displaced fracture of upper end of left humerus, initial encounter for closed fracture Condition: Stable Prescriptions: New acetaminophen-codeine 300-60 mg tablet 1 - 2 tab PO Q6H PRN (Reason: pain) Qty: 20 RF: 0 No Action diclofenac sodium [Voltaren] 1 % gel 2 g topical QID Qty: 100 RF: 5 hydrocortisone 2.5 % ointment 1 applic topical BID Qty: 28.35 RF: 1 clobetasol 0.05 % ointment 1 applic topical BID 14 Days Qty: 60 RF: 2 naproxen sodium [Aleve] 220 mg tablet 220 mg PO ONCE PRNRF: 0 azelastine 137 mcg (0.1 %) aerosol,spray 1 spray INTRANASAL BID RF: 0 Premarin 0.3 mg tablet 0.3 mg PO DAILY RF: 0 fluticasone propionate [Flonase Allergy Relief] 50 mcg/actuation spray,suspension 1 spray INTRANASAL DAILY RF: 0 aspirin [Adult Aspirin Regimen] 81 mg tablet,delayed release (DR/EC) 81 mg PO DAILY RF: 0 gabapentin 600 mg tablet 600 mg PO TID 30 Days Qty: 90 RF: 3 Discharge Orders: Discharge ED (Routine); Ordered 06/18/21 Ordered By: Nolan Morton Referrals: Sandeep Dyer MD [Primary Care Provider] - Discharge Diet: Advance as tolerated Discharge Activity: Limit activity as instructed Patient Instructions: Arm Fracture in Adults (ED) Activity Restrictions/Additional Instructions: Follow-up with medical provider as directed. Take medications as prescribed. Return to the ER or your medical provider if condition worsens. Please read and understand discharge instructions. If any questions ask please. Wear sling until follow-up with orthopedic doctor. Hospital will be contacting you with an appointment for orthopedic doctor. Coding Level of Care Code ED Instrumentation And Controls Designer for Edin Fwd Exam Comprehensive
[2021-06-18 11:45] VITALS: BP 136/74; PULSE 82; RESP 18; O2SAT 96
[2021-06-18] MEDS: acetaminophen-codeine 300-30mg Tablet 2 TAB PO (12:20)
[2021-06-18] MEDS: CELEcoxib 200 mg Capsule 400 MG PO (13:13)
--- NOTE | 2021-06-18 13:45 | DCPLANNER ---
manager inventory management had message to schedule a follow up appointment for patient with ortho. manager inventory management called the ortho clinic, spoke with Estefani, gave clinic patients information. manager inventory management was told that patients information would be printed and reviewed. Clinic will call patient with appointment information.
--- NOTE | 2021-06-27 09:00 | DCPLANNER ---
Patient had a follow up appointment scheduled for 06.20.21 with VINCENZO Graf at [facility] - patient did attend appointment.
== END 2021-06-18 13:44 | disposition home or self-care (01) ==
PROVIDERS: Emergency Provider Nurse Practitioner Family; PCP Family Medicine
DX: S42.225A 2-part nondisplaced fracture of surgical neck of left humerus, initial encounter for closed fracture (principal); S42.292A Other displaced fracture of upper end of left humerus, initial encounter for closed fracture; Z79.82 Long term (current) use of aspirin; W19.XXXA Unspecified fall, initial encounter
CPT/HCPCS: 73030; 73060; 99283

== ENCOUNTER → 2021-06-20 10:33 | Outpatient (BNVA) | payer MEDICARE, OTHER, SELFPAY | PROVIDERS: PCP Family Medicine; Referring Provider Nurse Practitioner Family; Visit Provider Physician Assistant | DX: S42.225A 2-part nondisplaced fracture of surgical neck of left humerus, initial encounter for closed fracture (principal); X58.XXXA Exposure to other specified factors, initial encounter | CPT/HCPCS: 73030 ==

== ENCOUNTER → 2021-07-02 10:41 | Outpatient (BNVA) | payer MEDICARE, OTHER, SELFPAY | PROVIDERS: PCP Family Medicine; Visit Provider Physician Assistant | DX: S42.225A 2-part nondisplaced fracture of surgical neck of left humerus, initial encounter for closed fracture (principal); W19.XXXA Unspecified fall, initial encounter | CPT/HCPCS: 73030 ==

== ENCOUNTER 2021-07-08 06:00 | Outpatient (RCR) | payer MEDICARE, OTHER, SELFPAY | END 2021-07-15 23:59 | disposition home or self-care (01) | LOC: SPT 06:00 | PROVIDERS: PCP Family Medicine; Referring Provider Physician Assistant; Visit Provider Physician Assistant | DX: S42.292D Other displaced fracture of upper end of left humerus, subsequent encounter for fracture with routine healing (principal); X58.XXXD Exposure to other specified factors, subsequent encounter | CPT/HCPCS: 97110; 97161; G0283 ==

== ENCOUNTER 2021-07-16 06:00 | Outpatient (RCR) | payer MEDICARE, OTHER, SELFPAY | END 2021-08-12 23:59 | disposition home or self-care (01) | LOC: SPT 06:00 | PROVIDERS: PCP Family Medicine; Referring Provider Physician Assistant; Visit Provider Physician Assistant | DX: S42.292D Other displaced fracture of upper end of left humerus, subsequent encounter for fracture with routine healing (principal); X58.XXXD Exposure to other specified factors, subsequent encounter | CPT/HCPCS: 97110; G0283 ==

== ENCOUNTER → 2021-07-25 13:38 | Outpatient (BNVA) | payer MEDICARE, OTHER, SELFPAY | PROVIDERS: PCP Family Medicine; Visit Provider Physician Assistant | DX: S42.212D Unspecified displaced fracture of surgical neck of left humerus, subsequent encounter for fracture with routine healing (principal); X58.XXXD Exposure to other specified factors, subsequent encounter | CPT/HCPCS: 73030 ==

== ENCOUNTER 2021-08-13 06:00 | Outpatient (RCR) | payer MEDICARE, OTHER, SELFPAY | END 2021-09-12 23:59 | disposition home or self-care (01) | LOC: SPT 06:00 | PROVIDERS: PCP Family Medicine; Referring Provider Physician Assistant; Visit Provider Physician Assistant | DX: S42.292D Other displaced fracture of upper end of left humerus, subsequent encounter for fracture with routine healing (principal); X58.XXXD Exposure to other specified factors, subsequent encounter | CPT/HCPCS: 97110; G0283 ==

== ENCOUNTER → 2021-08-22 09:54 | Outpatient (BNVA) | payer MEDICARE, OTHER, SELFPAY | PROVIDERS: PCP Family Medicine; Visit Provider Anesthesiology Pain Medicine | DX: G89.29 Other chronic pain (principal); S42.292D Other displaced fracture of upper end of left humerus, subsequent encounter for fracture with routine healing; M50.90 Cervical disc disorder, unspecified, unspecified cervical region; M54.16 Radiculopathy, lumbar region; M54.12 Radiculopathy, cervical region; M17.12 Unilateral primary osteoarthritis, left knee; X58.XXXD Exposure to other specified factors, subsequent encounter | CPT/HCPCS: 73030; 99213 ==

== ENCOUNTER 2021-09-13 06:00 | Outpatient (RCR) | payer MEDICARE, OTHER, SELFPAY | END 2021-10-12 23:59 | disposition home or self-care (01) | LOC: SPT 06:00 | PROVIDERS: PCP Family Medicine; Referring Provider Physician Assistant; Visit Provider Physician Assistant | DX: S42.292D Other displaced fracture of upper end of left humerus, subsequent encounter for fracture with routine healing (principal); X58.XXXD Exposure to other specified factors, subsequent encounter | CPT/HCPCS: 97110; G0283 ==

== ENCOUNTER → 2021-10-03 10:23 | Outpatient (BNVA) | payer MEDICARE, OTHER, SELFPAY | PROVIDERS: PCP Family Medicine; Visit Provider Physician Assistant | DX: S42.292D Other displaced fracture of upper end of left humerus, subsequent encounter for fracture with routine healing (principal); X58.XXXD Exposure to other specified factors, subsequent encounter | CPT/HCPCS: 73030; 99213; 99999 ==

== ENCOUNTER 2021-10-13 06:00 | Outpatient (RCR) | payer MEDICARE, OTHER, SELFPAY | END 2021-11-07 23:59 | disposition home or self-care (01) | LOC: SPT 06:00 | PROVIDERS: PCP Family Medicine; Referring Provider Physician Assistant; Visit Provider Physician Assistant | DX: S42.202D Unspecified fracture of upper end of left humerus, subsequent encounter for fracture with routine healing (principal); X58.XXXD Exposure to other specified factors, subsequent encounter | CPT/HCPCS: 97110 ==

== ENCOUNTER 2021-10-15 14:32 | Outpatient (CLI) | payer MEDICARE, OTHER, SELFPAY ==
--- NOTE | 2021-10-15 14:36 | XR_ITS ---
WS: [id number] DEXA (DUAL ENERGY X-RAY ABSORPTIOMETRY) Bone mineral density was performed using a [employer] machine. HISTORY: POST MENOPAUSAL COMPARISON: None available. Lumbar spine BMD (L1-L4): 1.111 g/cm2 T score: -0.6 Z score: 1.1 Total hip BMD: Left: 0.893 g/cm2. T score: -0.9 Z score: 0.4 Right: 0.876 g/cm2. T score: -1.0 Z score: 0.3 10 year probability of a major osteoporotic fracture is 15%. XR/XR DEXA axial skeleton* [id number] IMPRESSION: NORMAL BONE MINERAL DENSITY based upon the WHO classification for females.
== END 2021-10-15 14:33 | disposition home or self-care (01) ==
LOC: RAD 14:34
PROVIDERS: PCP Family Medicine; Visit Provider Family Medicine
DX: Z78.0 Asymptomatic menopausal state (principal)
CPT/HCPCS: 77080; 80048; 80053; 80061; 83690; 84439; 84443; 84481; 85025; 85651; 86140

== ENCOUNTER → 2021-10-18 10:49 | Outpatient (BNVA) | payer MEDICARE, OTHER, SELFPAY | PROVIDERS: PCP Family Medicine; Visit Provider Internal Medicine | DX: M06.9 Rheumatoid arthritis, unspecified (principal); Z79.899 Other long term (current) drug therapy; M54.2 Cervicalgia; G89.29 Other chronic pain; R70.0 Elevated erythrocyte sedimentation rate | CPT/HCPCS: 99213; 99214 ==

== ENCOUNTER → 2021-11-19 10:10 | Outpatient (BNVA) | payer MEDICARE, OTHER, SELFPAY | PROVIDERS: PCP Family Medicine; Visit Provider Anesthesiology Pain Medicine | DX: G89.29 Other chronic pain (principal); M54.12 Radiculopathy, cervical region; M50.90 Cervical disc disorder, unspecified, unspecified cervical region; M54.16 Radiculopathy, lumbar region; M25.569 Pain in unspecified knee; M79.604 Pain in right leg; M79.605 Pain in left leg | CPT/HCPCS: 99213 ==

== ENCOUNTER → 2022-02-18 10:31 | Outpatient (BNVA) | payer MEDICARE, OTHER, SELFPAY | PROVIDERS: PCP Family Medicine; Visit Provider Anesthesiology Pain Medicine | DX: G89.29 Other chronic pain (principal); M51.17 Intervertebral disc disorders with radiculopathy, lumbosacral region; M50.90 Cervical disc disorder, unspecified, unspecified cervical region; M79.601 Pain in right arm; G62.9 Polyneuropathy, unspecified | CPT/HCPCS: 99214 ==

== ENCOUNTER 2022-04-23 10:08 | Outpatient (CLI) | payer MEDICARE, OTHER, SELFPAY ==
[2022-04-23 11:10] LABS: Basophils % 0.5 %; Eosinophils # 0.1 10^3/uL (0.0-0.8); Eosinophils % 2.1 %; Hematocrit 41.5 % (37.0-47.0); Hemoglobin 13.3 g/dL (11.5-15.3); Lymphocytes # 2.3 10^3/uL (0.8-4.8); Lymphocytes % 39.8 %; Mean Corpuscular Hemoglobin 28.9 pg (28.0-34.0); Mean Corpuscular Volume 90.2 fl (81-99); Mean Platelet Volume 9.4 fL (7.4-10.4); Monocytes # 0.5 10^3/uL (0.2-0.9); Monocytes % 8.1 %; Neutrophils # 2.86 10^3/uL (1.8-7.7); Neutrophils % 49.2 %; Nucleated Red Blood Cells % 0 %; Platelet Count 247 10^3/cmm (130-400); Red Cell Distribution Width 13.2 % (12.1-15.1); White Blood Count 5.8 10^3/uL (4.0-10.0)
[2022-04-23 11:11] LABS: Erythrocyte Sedimentation Rate 3 mm/hr (0-15)
[2022-04-23 11:31] LABS: Alanine Aminotransferase 11 U/L (0-33); Albumin Level 3.8 g/dL (3.5-5.2); Alkaline Phosphatase 66 U/L (35-105); Anion Gap 13.1 (5-19); Aspartate Amino Transferase 14 U/L (0-32); Blood Urea Nitrogen 11 mg/dL (8-23); Calcium 9.5 mg/dL (8.5-10.5); Carbon Dioxide 27 mmol/L (22-29); Chloride 102 mmol/L (98-107); Globulin 2.8 g/dL (1.3-4.6); Glomerular Filtration Rate 71.8 mL/min (90-130); Glucose 97 mg/dL (65-115); Osmolality Calculated 285 mOsm/kg (285-295); Potassium 4.1 mmol/L (3.5-5.1); Sodium 138 mmol/L (136-145); Total Bilirubin 0.3 mg/dL (0.15-1.2); Total Protein 6.6 g/dL (6.6-8.7)
== END 2022-04-23 10:09 | disposition home or self-care (01) ==
LOC: LAB 10:11
PROVIDERS: PCP Family Medicine; Visit Provider Internal Medicine
DX: M06.9 Rheumatoid arthritis, unspecified (principal); Z79.899 Other long term (current) drug therapy
CPT/HCPCS: 80053; 85025; 85651; 86140

== ENCOUNTER → 2022-04-25 10:23 | Outpatient (BNVA) | payer MEDICARE, OTHER, SELFPAY | PROVIDERS: PCP Family Medicine; Visit Provider Internal Medicine | DX: M06.9 Rheumatoid arthritis, unspecified (principal) | CPT/HCPCS: 99214 ==

== ENCOUNTER → 2022-05-21 09:58 | Outpatient (BNVA) | payer MEDICARE, OTHER, SELFPAY | PROVIDERS: PCP Family Medicine; Visit Provider Anesthesiology Pain Medicine | DX: G89.29 Other chronic pain (principal); M51.17 Intervertebral disc disorders with radiculopathy, lumbosacral region; M25.569 Pain in unspecified knee; M79.641 Pain in right hand; M79.642 Pain in left hand; M79.671 Pain in right foot; M79.672 Pain in left foot; M79.602 Pain in left arm; M25.512 Pain in left shoulder | CPT/HCPCS: 99213 ==

== ENCOUNTER → 2022-05-26 16:55 | Outpatient (BNVA) | payer MEDICARE, OTHER, SELFPAY | PROVIDERS: PCP Family Medicine; Visit Provider Obstetrics & Gynecology | DX: N95.1 Menopausal and female climacteric states (principal); E78.5 Hyperlipidemia, unspecified | CPT/HCPCS: 83001; 84443 ==

== ENCOUNTER 2022-06-10 14:43 | Outpatient (CLI) | payer MEDICARE, OTHER, SELFPAY ==
--- NOTE | 2022-06-10 15:43 | XR_ITS ---
WS: [email or web address] Right hand, 2 views, 06/10/2022 Clinical Data: M54.2 - Cervicalgia Comparison: Right hand, 03/21/2020 Findings: No fractures or dislocations are seen. The soft tissues are unremarkable. The joint space s are normal No periarticular demineralization or calcifications are seen. XR/XR hand RT 2V [id number] Impression: Negative right hand.
--- NOTE | 2022-06-10 15:43 | XR_ITS ---
WS: [email or web address] Left foot, 3 views, 06/10/2022 Clinical Data: M25.50 - Pain in unspecified joint Comparison: Bilateral feet, 03/21/2020 Findings: No fractures or dislocations are seen. No bone destruction or erosion is noted. The joint spaces and soft tissues are normal. No periarticular demineralization or calcification is seen. There is a plantar spur.. XR/XR foot LT 2V [id number] Impression: Negative left foot.
--- NOTE | 2022-06-10 15:43 | XR_ITS ---
WS: [email or web address] Right foot, 3 views, 06/10/2022 Clinical Data: M25.50 - Pain in unspecified joint Comparison: Bilateral feet, 03/21/2020 Findings: No fractures or dislocations are seen. No bone destruction or erosion is noted. The joint spaces and soft tissues are normal. No periarticular demineralization or calcifications are seen. There is a small plantar spur. XR/XR foot RT 2V [id number] Impression: Negative right foot.
--- NOTE | 2022-06-10 15:43 | XR_ITS ---
WS: [email or web address] Left hand, 2 views, 06/10/2022 Clinical Data: M54.2 - Cervicalgia Comparison: Left hand, 03/21/2020 Findings: No fractures or dislocations are seen. The soft tissues are unremarkable. The joint spaces are normal No periarticular demineralization or calcifications are seen. XR/XR hand LT 2V [id number] Impression: Negative left hand.
== END 2022-06-10 14:44 | disposition home or self-care (01) ==
LOC: RAD 14:47
PROVIDERS: PCP Family Medicine; Visit Provider Psychiatry & Neurology Psychiatry
DX: M79.641 Pain in right hand (principal); M79.642 Pain in left hand; M79.672 Pain in left foot; M79.671 Pain in right foot
CPT/HCPCS: 73120; 73620

== ENCOUNTER 2022-06-11 07:44 | Outpatient (CLI) | payer MEDICARE, OTHER, SELFPAY ==
--- NOTE | 2022-06-11 07:53 | MM_ITS ---
WS: [email or web address] Bilateral screening 3D tomosynthesis digital mammogram, 06/11/2022 Clinical Data: SCREENING Comparison: 05/31/2021, 03/14/2020, 02/23/2019, 02/17/2017, 11/29/2013, 11/13/2011, 11/06/2010, 10/16/2009, 10/18/2008, 10/21/2007, 10/19/2006. Findings: The breast parenchymal pattern shows fibroglandular tissue. No spiculated masses or clustered calcifi cations are seen. There are no secondary signs of carcinoma. There are small lymph nodes in both axil la. MM/[place] [id number] Impression: 1. Negative bilateral mammogram unchanged. 2. Recommend annual screening mammograms. BIRADS: 1-Negative FOLLOW UP: 1 Year Follow-up The CAD electric distribution checker was used.
== END 2022-06-11 07:45 | disposition home or self-care (01) ==
LOC: RAD 07:44
PROVIDERS: PCP Family Medicine; Visit Provider Obstetrics & Gynecology
DX: Z12.31 Encounter for screening mammogram for malignant neoplasm of breast (principal)
CPT/HCPCS: 77063; 77067

== ENCOUNTER → 2022-08-11 13:44 | Outpatient (BNVA) | payer MEDICARE, OTHER, SELFPAY | PROVIDERS: PCP Family Medicine; Visit Provider Otolaryngology | DX: J32.9 Chronic sinusitis, unspecified (principal); R05.3 Chronic cough; M26.621 Arthralgia of right temporomandibular joint; K13.79 Other lesions of oral mucosa | CPT/HCPCS: 99203 ==

== ENCOUNTER → 2022-08-19 10:40 | Outpatient (BNVA) | payer MEDICARE, OTHER, SELFPAY | PROVIDERS: PCP Family Medicine; Visit Provider Anesthesiology Pain Medicine | DX: G89.29 Other chronic pain (principal); M50.90 Cervical disc disorder, unspecified, unspecified cervical region; M51.17 Intervertebral disc disorders with radiculopathy, lumbosacral region; M79.604 Pain in right leg; M79.605 Pain in left leg | CPT/HCPCS: 99214 ==

== ENCOUNTER 2022-08-25 14:57 | Outpatient (CLI) | payer MEDICARE, OTHER, SELFPAY ==
--- NOTE | 2022-08-25 15:00 | CT_ITS ---
WS: [email or web address] CT SINUSES TECHNIQUE: Noncontrast CT of the paranasal sinuses with coronal and sagittal reformatted images. CLINICAL INFORMATION: sinusitis COMPARISON: None. DLP: 340.[address] scans at [facility] use at least one of these dose optimization techniques: automated e xposure control; mA and/or kV adjustment per patient size (includes targeted exams where dose is matc hed to clinical indication); or iterative reconstruction. FINDINGS: Mastoid air cells are well aerated. Normal posterior nasopharynx. Normal parapharyngeal fat. Mild muc osal thickening in the ethmoid air cells. Partially visualized intracranial contents are normal. LEFT henry bullosa. Mild LEFT to RIGHT nasal septal deviation measuring 3 mm. Mild narrowing of the osti omeatal units bilaterally which remain patent. Small RIGHT Nandini cell. Normal C1-[address] articulation. Normal bony sella. CT/CT sinus wo con* [id number] IMPRESSION: 1. Mild LEFT to RIGHT nasal septal deviation measuring 3 mm. 2. Paranasal sinuses are well aerated. Mild mucosal thickening in the ethmoid air cells. 3. Mastoid air cells well aerated. 4. Ostiomeatal units are patent. Mild narrowing of the ostiomeatal units bilat erally. Small RIGHT Nandini cell. 5. LEFT henry bullosa.
== END 2022-08-25 14:58 | disposition home or self-care (01) ==
LOC: RAD 15:00
PROVIDERS: PCP Family Medicine; Visit Provider Otolaryngology
DX: J32.9 Chronic sinusitis, unspecified (principal); J34.2 Deviated nasal septum
CPT/HCPCS: 70486

== ENCOUNTER → 2022-08-27 11:23 | Outpatient (BNVA) | payer MEDICARE, OTHER, SELFPAY | PROVIDERS: PCP Family Medicine; Visit Provider Otolaryngology | DX: J34.89 Other specified disorders of nose and nasal sinuses (principal); J34.3 Hypertrophy of nasal turbinates; K13.79 Other lesions of oral mucosa; R09.89 Other specified symptoms and signs involving the circulatory and respiratory systems | CPT/HCPCS: 99214 ==

== ENCOUNTER 2022-09-18 10:26 | Day surgery (SDC) | payer MEDICARE, OTHER, SELFPAY ==
[2022-09-17 10:32] VITALS: BMI 24.5
[2022-09-18] MEDS: scopolamine 1.5 Patch 1 PATCH TRANSDERMA (11:01)
[2022-09-18] MEDS: sodium chloride 0.9% 1,000 ML 30 ML IV (11:04)
--- NOTE | 2022-09-18 11:19 | W.PM.OPSUD ---
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 Hypertrophic uvula. PLANNED PROCEDURE: Operation Date: 09/18/22 11:45 Proposed Procedures p [id number], endoscopic resection of left middle turbinate henry bullosa, inferior turbinate reduction, [id number], R09.89,j34.89(Left) - Satya Reyez MD s Uvulectomy(Left) - Satya Reyez MD
--- NOTE | 2022-09-18 11:27 | ANES.PREANE2 ---
Pre-Anesthetic Assessment Height/Weight: Height 1.63 m Weight 64.864 kg O2 Del Method 09/18/22 10:54 Preop Diagnosis: Nasal obstruction with turbinate hypertrophy/hypertrophic uvula Operation Date: 09/18/22 11:45 Proposed Procedures p [id number], endoscopic resection of left middle turbinate henry bullosa, inferior turbinate reduction, [id number], R09.89,j34.89(Left) - Satya Reyez MD s Uvulectomy(Left) - Satya Reyez MD Familial anesthetic complications: None Was Beta Be taken within 24 hours: N/A Was Clonidine taken within 24 hours: N/A Last intake: Intake Last Liquid Date 09/17/22 Last Liquid Time 23:00 Last Solid Date 09/17/22 Last Solid Time 23:30 Social No alcohol and No tobacco Exam alert, oriented x 3, clear to auscultation bilaterally and regular rate & rhythm Airway Mallampati: Class I Dentition: full Metabolic hemithyroidectomy for goiter [facility] [place] Rheumatoid Arthritis Anesthetic Plan ASA status: 2 Anesthesia: General Risk of > 500 ml blood loss (7ml/kg in children): No Medications/Allergies Home Medications Medication Instructions Recorded Confirmed Last Taken Type diclofenac sodium 1 % topical gel 2 g topical QID #100 grams 08/20/20 09/17/22 Unknown Rx (Voltaren) naproxen sodium 220 mg tablet 220 mg PO PRN PRN Pain 12/04/20 09/18/22 09/17/22 History (Aleve) estradiol 1 mg tablet 1 mg PO DAILY #90 tabs 06/03/22 09/18/22 09/17/22 Rx gabapentin 600 mg tablet 600 mg PO TID #90 tabs 08/19/22 09/18/22 09/17/22 Rx fluticasone propionate 50 1 spray intranasal BID 09/17/22 09/18/22 09/17/22 History mcg/actuation nasal spray,suspension (Flonase Allergy Relief) Allergies Allergy/AdvReac Type Severity Reaction Status Date / Time Latex, Natural Rubber Allergy Mild red bloches Verified 09/17/22 10:27 adhesive tape Allergy ALGY-Rash Verified 09/17/22 10:27 carbamazepine [From Tegretol] AdvReac Severe ADV-Weaknes Verified 09/17/22 10:27 s oxycodone AdvReac Intermediate vomiting Verified 09/17/22 10:27 hydrocodone AdvReac Unknown GI upset Verified 09/17/22 10:27 Current Medications Generic Name Dose Route Start Last Admin Trade Name Cookie PRN Reason Stop Dose Admin Sodium Chloride 1,000 mls @ 30 mls/hr 09/18/22 10:45 09/18/22 11:04 Sodium Chloride 0.9% IV 09/19/22 10:44 30 mls/hr .Q24H GORGE Administration PFSH Anesthesia Medical History H/O thyroid cyst Goiter removed in 02/2021 Hand pain High risk medication use History of nonmelanoma skin cancer Hx of thyroid nodule No pertinent past medical history Denies diabetes, asthma, hypertension, seizures, DVT/PE. PCP: Dr. Dyer Surgical History H/O repair of rotator cuff Left rotator cuff repair in 2008 S/P section x2-----1978 and 1981---------> first was viral vertical infraumbilical incision and the second one was a Pfannenstiel incision. S/P exploratory laparotomy 12/08/2002---exploratory laparotomy was done secondary to hemoperitoneum identified after the hysterectomy. Postoperative patient had significant drop in hemoglobin and nausea and as a result exploratory laparotomy was performed. The right round ligament had bleeding which was ligated. No active bleeding was noted elsewhere. The abdomen was irrigated and cleaned of clots and blood and patient was taken to the operating room. --------> these records have been scanned into the computer. S/P hysterectomy She had an ABDOMINAL SUPRACERVICAL HYSTERECTOMY WITH BILATERAL SALPINGO-OOPHORECTOMY for fibroids done in [place] in 2002. She states that after discharge she developed pain and bleeding and required multiple blood transfusions and 4 days after her hysterectomy had to be reopened to stop bleeding. She remained in the hospital for about 2 weeks after that with complications in terms of healing and bleeding. She states that a supracervical hysterectomy was performed. Denies any malignancy identified at the time of surgery. Surgery was performed via vertical midline incision. -------> history and physical note from Dr. Odessa Mina obtained-patient had and 15 x 5.6 x 8 cm uterus with menorrhagia causing anemia with a hemoglobin of 9-10. Operative report was reviewed and supracervical abdominal hysterectomy with bilateral salpingo-oophorectomy was performed. Although patient had wanted her cervix removed a supracervical procedure was performed and the endocervical canal was cauterized with the Bovie. --- >Pathology showed a 292 g uterine corpus with multiple fibroids, fetus cystadenofibroma in the right ovary, bilateral tubes showed no diagnostic abnormality and the left ovary showing no diagnostic abnormality S/P inguinal hernia repair Right sided inguinal hernia repair in 1980 S/P tubal ligation Done at time of second in 1981 Family History Mother Hyperlipidemia Brother Hyperlipidemia Diabetes Father Heart disease Denies family history of Colon cancer Ovarian cancer Breast cancer Hypertension Uterine cancer Thyroid condition Social History Smoking and tobacco status: never smoked Second hand smoke exposure: No Alcohol intake: never Marital status: Data Anesthesia Cardiac Studies: No Data to Display
[2022-09-18] MEDS: ceFAZolin 2,000 MG in sodium chloride 0.9% (plus) 50 ML 100 MG IV (11:39)
[2022-09-18] MEDS: lidocaine-epi 2% 1.7mL Cartridge (OR Only) 8.5 ML XX (12:30)
[2022-09-18] MEDS: oxymetazoline 0.05% Nasal Spray 15 mL 2 SPRAY NOSTRIL-B (12:38)
--- NOTE | 2022-09-18 12:43 | PM.OP ---
Operative Report Date of procedure: September 18, 2022 Pre-op diagnosis: Preop Diagnosis Nasal obstruction with turbinate hypertrophy/ hypertrophic uvula Post-op diagnosis: Nasal obstruction with turbinate hypertrophy and hypertrophic uvula Post-op findings: Much improved nasal airway with inferior turbinates reduced and left middle turbinate henry bullosa resected. Uvulectomy accomplished with improved oral pharyngeal airway as well. Procedure done: Endoscopic left middle turbinate henry bullosa resection. Bilateral inferior turbinate submucous resection. Uvulectomy. Implants: Telfa packs x2 Specimens removed/disposition: Left middle turbinate henry bullosa and bilateral inferior turbinates. Uvula. Pathology: Left middle turbinate henry bullosa and bilateral inferior turbinate segments. Uvula. Surgeon: Satya Reyez MD Anesthesia: General and Local Estimated blood loss: 10 mL Complications: No complications encountered Findings: Bilateral inferior turbinates were 3-4+ hypertrophic. Right side was greater than left. Left middle turbinate with henry bullosa 4+ size. Hypertrophic uvula touching base of tongue and epiglottis. Brief History: 67-year-old female patient has had chronic nasal obstruction and this has been refractory to medical therapy with decongestants and steroid nasal sprays. She is also taken antihistamines. The patient was found to have a massive left middle turbinate henry bullosa and significant hypertrophy of both inferior turbinates right side greater than left in the 3-4+ range. Patient also has chronic clearing of the throat problem and is felt to likely be due to to the chronic mouth breathing and the hypertrophic uvula. This uvula hanging to the base of the tongue and epiglottis and the dryness from mouth breathing would certainly be a source for the uvula to stick to the tissues and cause her to clear her throat repeatedly. Therefore she is being brought to the operating room at this time to undergo endoscopic left middle turbinate henry bullosa resection and bilateral inferior turbinate submucous resections and uvulectomy. The procedures risks and complications of been explained in detail to the patient in the office setting. These risks included bleeding infection numbness scarring swelling bruising persistence of nasal congestion or feeling like she needs to clear her throat. She may also have dryness of the nose compared to previous moisture. Patient certainly will have sore throat and the potential for delayed bleeding at the uvulectomy site. With these things understood informed consent was granted and witnessed. Patient also understands the risks regarding anesthesia. Procedure: Description of procedure: The patient was placed on the operating table in the supine position. Adequate general endotracheal tube anesthesia was obtained. He received Ancef IV for prophylaxis and Decadron to help with postoperative edema. A timeout was accomplished identifying the patient date of plan procedure allergies fire risk and medications given. With all in agreement the procedure continued. The patient was placed into a semirecumbent position. Her nose was packed with cottonoids soaked in 12-hour Afrin. The nasal hairs were trimmed with scissors. The cottonoids were removed and the middle turbinate and inferior turbinate on the left side were infiltrated with local. The right inferior turbinate was also infiltrated with local. Afrin packs were reapplied. The attachment of the uvula to the soft palate area was injected with local as well. A total of 8.5 mL of 2% Xylocaine with 1-100,000 epinephrine was utilized. The patient was then prepped and draped in usual fashion. The packing was removed from the left side of the nose. Using direct and endoscopic visualization with a 0 degree scope the middle turbinate was excised with a curved turbinate scissors. The medial aspect was left longer. The lateral aspect was removed. This left a small area superiorly and posteriorly that was a remnant of the middle turbinate. The inferior turbinate was then addressed by intramural cauterization. Then turbinate scissors were used to cut and this was done along the cauterized line medial and lateral and then some of the proximal bone was resected as well creating a submucous resection. This removed approximately one third of the left inferior turbinate. I did the same on the right inferior turbinate and removed about half of that inferior turbinate. With this accomplished I was able to pass a [place] elevator through both sides of the nose to the nasopharynx without obstruction. The inferior turbinates were slightly outfractured. Then the areas were suctioned clean. With no active bleeding it was still decided to pack her nose with Telfa. This was done anterior to posterior. The Telfa was coated with Neosporin ointment. Attention was then turned to the uvulectomy. The table was rotated 90 degrees. The patient was repositioned and with headdown position. A Rodrigo Serafin mouthgag was inserted over the endotracheal tube and tongue ensuring that the upper incisors were in the guard. This was then opened and suspended from a rolled towel placed on her chest. Baking forceps were used to hold the distal aspect of the uvula and the Coblator on ablation and coagulation modes was used to dissect the uvula from its attachment to the soft palate. Some of the internal musculature was resected as well so that there was a slight divot where the uvula used to be. Hemostasis was obtained with the Coblator on coagulation. Once there was no sign of any bleeding the area was irrigated and suctioned clean. Patient's head was returned to the upright position. Rodrigo Serafin mouthgag was released and removed. The throat was suctioned again with no sign of bleeding. Patient was then returned to anesthesia for wake-up and extubation. Patient tolerated the procedure well had an estimated blood loss of 10 mL and arrived in recovery in stable condition.
[2022-09-18 13:04] VITALS: BP 126/68; PULSE 85; RESP 21; TEMP 36.1; O2SAT 99
[2022-09-18 13:10] VITALS: BP 138/67; PULSE 83; RESP 20; O2SAT 100
[2022-09-18 13:16] VITALS: BP 125/78; PULSE 78; RESP 20; O2SAT 97
[2022-09-18 13:22] VITALS: BP 124/75; PULSE 79; RESP 15; TEMP 36.1; O2SAT 95
[2022-09-18 13:26] VITALS: BP 138/69; PULSE 76; RESP 17; TEMP 36.1; O2SAT 95
--- NOTE | 2022-09-18 13:34 | ANE.PACU2 ---
Inpatient post-anesthesia follow up: Airway intact: Yes Vital signs: Temperature 97.0 F Pulse Rate 76 Respiratory Rate 17 Blood Pressure 138/69 Pulse Oximetry 95 Oxygen Delivery Me thod Room Air Oxygen Flow Rate 6 Fraction of Inspir ed Oxygen Hydration adequate: Yes Nausea and vomiting: No Pain level: 1 Mental status: Baseline
[2022-09-18] MEDS: acetaminophen 500 mg Tablet PO (13:56)
[2022-09-18 13:57] VITALS: BP 140/72; PULSE 68; RESP 16; TEMP 36.2; O2SAT 98
== END 2022-09-18 14:25 | disposition home or self-care (01) ==
PROVIDERS: PCP Family Medicine; Visit Provider Otolaryngology
PROC: (CPT 42140; 2022-09-18 11:45)
PROC: (CPT 30140; 2022-09-18 11:45)
DX: J34.3 Hypertrophy of nasal turbinates (principal); K13.79 Other lesions of oral mucosa; J32.8 Other chronic sinusitis; J34.89 Other specified disorders of nose and nasal sinuses; M06.9 Rheumatoid arthritis, unspecified
CPT/HCPCS: 30140; 31240; 42140; 88304; 88305; A4216; J0690; J1100; J2405; J2704; J2710; J3010; J3490; J7030

== ENCOUNTER → 2022-09-26 08:28 | Outpatient (BNVA) | payer MEDICARE, OTHER, SELFPAY | PROVIDERS: PCP Family Medicine; Visit Provider Otolaryngology | DX: Z48.810 Encounter for surgical aftercare following surgery on the sense organs (principal); J34.89 Other specified disorders of nose and nasal sinuses; J34.3 Hypertrophy of nasal turbinates; K13.79 Other lesions of oral mucosa; R09.89 Other specified symptoms and signs involving the circulatory and respiratory systems | CPT/HCPCS: 99024 ==

== ENCOUNTER → 2022-09-30 08:40 | Outpatient (BNVA) | payer MEDICARE, OTHER, SELFPAY | PROVIDERS: PCP Family Medicine; Visit Provider Family Medicine | DX: E78.5 Hyperlipidemia, unspecified (principal) | CPT/HCPCS: 80061 ==

== ENCOUNTER → 2022-10-08 11:26 | Outpatient (BNVA) | payer MEDICARE, OTHER, SELFPAY | PROVIDERS: PCP Family Medicine; Visit Provider Otolaryngology | DX: Z48.89 Encounter for other specified surgical aftercare (principal) | CPT/HCPCS: 99024 ==

== ENCOUNTER 2022-10-16 13:08 | Outpatient (CLI) | payer MEDICARE, OTHER, SELFPAY ==
[2022-10-16 13:50] LABS: Basophils % 0.3 %; Eosinophils # 0.2 10^3/uL (0.0-0.8); Eosinophils % 2.9 %; Hematocrit 41.3 % (37.0-47.0); Hemoglobin 12.8 g/dL (11.5-15.3); Lymphocytes # 2.2 10^3/uL (0.8-4.8); Lymphocytes % 33.7 %; Mean Corpuscular Hemoglobin 28.5 pg (28.0-34.0); Mean Platelet Volume 9.5 fL (7.4-10.4); Monocytes # 0.4 10^3/uL (0.2-0.9); Monocytes % 6.3 %; Neutrophils # 3.66 10^3/uL (1.8-7.7); Neutrophils % 56.6 %; Nucleated Red Blood Cells % 0 %; Platelet Count 296 10^3/cmm (130-400); Red Blood Count 4.49 10^6/uL (4.1-5.3); Red Cell Distribution Width 13.5 % (12.1-15.1); White Blood Count 6.5 10^3/uL (4.0-10.0)
[2022-10-16 14:11] LABS: Alanine Aminotransferase 11 U/L (0-33); Alkaline Phosphatase 65 U/L (35-105); Anion Gap 13.5 (5-19); Aspartate Amino Transferase 14 U/L (0-32); Blood Urea Nitrogen 12 mg/dL (8-23); C Reactive Protein 3.2 mg/L (0.0-4.9); Calcium 9.3 mg/dL (8.5-10.5); Carbon Dioxide 29 mmol/L (22-29); Chloride 101 mmol/L (98-107); Globulin 2.6 g/dL (1.3-4.6); Glomerular Filtration Rate 71.8 mL/min (90-130); Glucose 124 mg/dL (65-115); Osmolality Calculated 289 mOsm/kg (285-295); Potassium 4.5 mmol/L (3.5-5.1); Sodium 139 mmol/L (136-145); Total Bilirubin 0.2 mg/dL (0.15-1.2); Total Protein 6.6 g/dL (6.6-8.7)
[2022-10-16 14:37] LABS: Erythrocyte Sedimentation Rate 5 mm/hr (0-15)
== END 2022-10-16 13:09 | disposition home or self-care (01) ==
LOC: LAB 13:13
PROVIDERS: PCP Family Medicine; Visit Provider Internal Medicine
DX: M06.9 Rheumatoid arthritis, unspecified (principal)
CPT/HCPCS: 36415; 80053; 85025; 85651; 86140

== ENCOUNTER → 2022-10-21 09:32 | Outpatient (BNVA) | payer MEDICARE, OTHER, SELFPAY | PROVIDERS: PCP Family Medicine; Visit Provider Internal Medicine | DX: G89.29 Other chronic pain (principal); R05.3 Chronic cough; M06.9 Rheumatoid arthritis, unspecified; M50.90 Cervical disc disorder, unspecified, unspecified cervical region | CPT/HCPCS: 99213 ==

== ENCOUNTER → 2022-11-11 11:18 | Outpatient (BNVA) | payer MEDICARE, OTHER, SELFPAY | PROVIDERS: PCP Family Medicine; Visit Provider Nurse Practitioner Family | DX: L23.7 Allergic contact dermatitis due to plants, except food (principal); S00.86XA Insect bite (nonvenomous) of other part of head, initial encounter; W57.XXXA Bitten or stung by nonvenomous insect and other nonvenomous arthropods, initial encounter; L85.3 Xerosis cutis; D22.62 Melanocytic nevi of left upper limb, including shoulder; L81.4 Other melanin hyperpigmentation; Z12.83 Encounter for screening for malignant neoplasm of skin; L57.8 Other skin changes due to chronic exposure to nonionizing radiation; L57.0 Actinic keratosis; L82.1 Other seborrheic keratosis; Z85.828 Personal history of other malignant neoplasm of skin; I78.8 Other diseases of capillaries | CPT/HCPCS: 17000; 17003; 17110; 99214 ==

== ENCOUNTER → 2022-11-20 10:02 | Outpatient (BNVA) | payer MEDICARE, OTHER, SELFPAY | PROVIDERS: PCP Family Medicine; Visit Provider Anesthesiology Pain Medicine | DX: G89.29 Other chronic pain (principal); M54.12 Radiculopathy, cervical region; M50.90 Cervical disc disorder, unspecified, unspecified cervical region; M54.16 Radiculopathy, lumbar region | CPT/HCPCS: 99213 ==

== ENCOUNTER → 2023-04-29 10:31 | Outpatient (BNVA) | payer MEDICARE, OTHER, SELFPAY | PROVIDERS: PCP Family Medicine; Visit Provider Nurse Practitioner Family | DX: Z85.828 Personal history of other malignant neoplasm of skin (principal); L57.0 Actinic keratosis; L82.1 Other seborrheic keratosis; D22.4 Melanocytic nevi of scalp and neck; L81.4 Other melanin hyperpigmentation | CPT/HCPCS: 17000; 17110; 99213 ==

== ENCOUNTER 2023-05-06 14:47 | Outpatient (CLI) | payer MEDICARE, OTHER, SELFPAY ==
[2023-05-06 15:03] LABS: Basophils % 0.3 %; Eosinophils # 0.2 10^3/uL (0.0-0.8); Eosinophils % 3.1 %; Hematocrit 43.7 % (36-47); Mean Corpuscular HGB Conc 31.4 g/dL (30-55); Mean Corpuscular Volume 92.4 fl (85-98); Mean Platelet Volume 9.4 fL (7.4-10.4); Monocytes # 0.4 10^3/uL (0.2-0.9); Monocytes % 6.7 %; Neutrophils # 2.25 10^3/uL (1.8-7.7); Neutrophils % 38.7 %; Nucleated Red Blood Cells % 0 %; Platelet Count 274 10^3/cmm (157-399); Red Blood Count 4.73 10^6/uL (3.85-5.65); Red Cell Distribution Width 13.1 % (12.1-15.1); White Blood Count 5.82 10^3/uL (3.29-11.43)
[2023-05-06 15:06] LABS: Erythrocyte Sedimentation Rate 3 mm/hr (0-15)
[2023-05-06 15:24] LABS: Alanine Aminotransferase 18 U/L (0-33); Albumin Level 4.3 g/dL (3.5-5.2); Alkaline Phosphatase 74 U/L (35-105); Anion Gap 12.3 (5-19); Aspartate Amino Transferase 20 U/L (0-32); Blood Urea Nitrogen 16 mg/dL (8-23); Calcium 9.7 mg/dL (8.5-10.5); Carbon Dioxide 29 mmol/L (22-29); Chloride 101 mmol/L (98-107); Globulin 2.7 g/dL (1.3-4.6); Glomerular Filtration Rate 55.3 mL/min (90-130); Glucose 133 mg/dL (65-115); Osmolality Calculated 289 mOsm/kg (285-295); Potassium 4.3 mmol/L (3.5-5.1); Sodium 138 mmol/L (136-145); Total Bilirubin 0.3 mg/dL (0.15-1.2)
== END 2023-05-06 14:48 | disposition home or self-care (01) ==
LOC: LAB 14:50
PROVIDERS: PCP Family Medicine; Visit Provider Internal Medicine
DX: M06.9 Rheumatoid arthritis, unspecified (principal); Z79.899 Other long term (current) drug therapy
CPT/HCPCS: 36415; 80053; 85025; 85651; 86140

== ENCOUNTER → 2023-05-11 13:45 | Outpatient (BNVA) | payer MEDICARE, OTHER, SELFPAY | PROVIDERS: PCP Family Medicine; Visit Provider Internal Medicine | DX: M06.9 Rheumatoid arthritis, unspecified (principal); M54.2 Cervicalgia; G89.29 Other chronic pain; M65.4 Radial styloid tenosynovitis [de Quervain] | CPT/HCPCS: 99214 ==

== ENCOUNTER → 2023-05-21 10:15 | Outpatient (BNVA) | payer MEDICARE, OTHER, SELFPAY | PROVIDERS: PCP Family Medicine; Visit Provider Anesthesiology Pain Medicine | DX: G89.29 Other chronic pain; M54.12 Radiculopathy, cervical region; M50.90 Cervical disc disorder, unspecified, unspecified cervical region; M54.16 Radiculopathy, lumbar region | CPT/HCPCS: 99214 ==

== ENCOUNTER → 2023-06-01 12:58 | Outpatient (BNVA) | payer MEDICARE, OTHER, SELFPAY | PROVIDERS: PCP Family Medicine; Visit Provider Anesthesiology Pain Medicine | DX: M54.12 Radiculopathy, cervical region (principal); G89.29 Other chronic pain | CPT/HCPCS: 62321; J1100 ==

== ENCOUNTER 2023-06-16 10:43 | Outpatient (CLI) | payer MEDICARE, OTHER, SELFPAY ==
--- NOTE | 2023-06-16 10:55 | MM_ITS ---
WS: [email or web address] BILATERAL 3D TOMOSYNTHESIS DIGITAL SCREENING MAMMOGRAPHY WITH CAD CLINICAL INFORMATION: SCREENING HISTORY: Screening mammogram. No current complaints. COMPARISON: 2021 TECHNIQUE: Bilateral CC and MLO views. FINDINGS: Scattered fibroglandular densities bilaterally. No suspicious focal mass, asymmetry, calcifications, or architectural distortion. No evidence of malignancy. Incidental punctate and lucent centered calci fications. IMPRESSION: MM/[place] [id number] BI-RADS: 2-Benign FOLLOW UP: 1 Year Follow-up Recommend return to annual screening mammography.
== END 2023-06-16 10:44 | disposition home or self-care (01) ==
LOC: RAD 10:43
PROVIDERS: PCP Family Medicine; Visit Provider Obstetrics & Gynecology
DX: Z12.31 Encounter for screening mammogram for malignant neoplasm of breast (principal)
CPT/HCPCS: 77063; 77067

== ENCOUNTER → 2023-06-17 09:54 | Outpatient (BNVA) | payer MEDICARE, OTHER, SELFPAY | PROVIDERS: PCP Family Medicine; Visit Provider Anesthesiology Pain Medicine | DX: M54.16 Radiculopathy, lumbar region (principal); M06.9 Rheumatoid arthritis, unspecified; G89.29 Other chronic pain; M25.512 Pain in left shoulder; M54.12 Radiculopathy, cervical region; M50.90 Cervical disc disorder, unspecified, unspecified cervical region | CPT/HCPCS: 73030; 99215 ==

== ENCOUNTER → 2023-07-17 14:26 | Outpatient (BNVA) | payer MEDICARE, OTHER, SELFPAY | PROVIDERS: PCP Family Medicine; Visit Provider Obstetrics & Gynecology | DX: Z12.4 Encounter for screening for malignant neoplasm of cervix (principal) | CPT/HCPCS: 88175 ==

== ENCOUNTER → 2023-07-21 09:55 | Outpatient (BNVA) | payer MEDICARE, OTHER, SELFPAY | PROVIDERS: PCP Family Medicine; Visit Provider Anesthesiology Pain Medicine | DX: G89.29 Other chronic pain; M54.12 Radiculopathy, cervical region; M50.90 Cervical disc disorder, unspecified, unspecified cervical region; M54.16 Radiculopathy, lumbar region; M06.9 Rheumatoid arthritis, unspecified | CPT/HCPCS: 99214 ==

== ENCOUNTER → 2023-10-02 10:43 | Outpatient (BNVA) | payer MEDICARE, OTHER, SELFPAY | PROVIDERS: PCP Family Medicine; Visit Provider Family Medicine | DX: M06.9 Rheumatoid arthritis, unspecified (principal); Z01.419 Encounter for gynecological examination (general) (routine) without abnormal findings; E11.9 Type 2 diabetes mellitus without complications | CPT/HCPCS: 80053; 80061; 84443; 85025; 86140 ==

== ENCOUNTER → 2023-10-26 10:06 | Outpatient (BNVA) | payer MEDICARE, OTHER, SELFPAY | PROVIDERS: PCP Family Medicine; Visit Provider Anesthesiology Pain Medicine | DX: G89.29 Other chronic pain; M54.12 Radiculopathy, cervical region; M50.90 Cervical disc disorder, unspecified, unspecified cervical region; M54.16 Radiculopathy, lumbar region; M06.9 Rheumatoid arthritis, unspecified | CPT/HCPCS: 99214 ==

== ENCOUNTER → 2023-11-25 13:59 | Outpatient (BNVA) | payer MEDICARE, OTHER, SELFPAY | PROVIDERS: PCP Family Medicine; Visit Provider Podiatrist Foot & Ankle Surgery | DX: G90.09 Other idiopathic peripheral autonomic neuropathy (principal); M21.41 Flat foot [pes planus] (acquired), right foot; M21.42 Flat foot [pes planus] (acquired), left foot | CPT/HCPCS: 99213 ==

== ENCOUNTER → 2024-01-01 08:23 | Outpatient (BNVA) | payer MEDICARE, OTHER, SELFPAY | PROVIDERS: PCP Family Medicine; Visit Provider Family Medicine | DX: E78.5 Hyperlipidemia, unspecified (principal) | CPT/HCPCS: 80053; 80061 ==

== ENCOUNTER 2024-01-06 16:47 | Outpatient (CLI) | payer MEDICARE, OTHER, SELFPAY | END 2024-01-06 16:48 | disposition home or self-care (01) | LOC: SPT 16:49 | PROVIDERS: PCP Family Medicine; Visit Provider Podiatrist Foot & Ankle Surgery | DX: Z46.89 Encounter for fitting and adjustment of other specified devices (principal); G90.09 Other idiopathic peripheral autonomic neuropathy; M72.2 Plantar fascial fibromatosis; M20.21 Hallux rigidus, right foot; M20.22 Hallux rigidus, left foot | CPT/HCPCS: L3030 ==

== ENCOUNTER → 2024-05-24 08:20 | Outpatient (BNVA) | payer MEDICARE, OTHER, SELFPAY | PROVIDERS: PCP Family Medicine; Visit Provider Nurse Practitioner Family | DX: L82.1 Other seborrheic keratosis (principal); D22.62 Melanocytic nevi of left upper limb, including shoulder; L81.4 Other melanin hyperpigmentation; Z08 Encounter for follow-up examination after completed treatment for malignant neoplasm; Z85.828 Personal history of other malignant neoplasm of skin; L82.0 Inflamed seborrheic keratosis; L53.8 Other specified erythematous conditions; L29.89 Other pruritus | CPT/HCPCS: 17000; 17110; 99213 ==

== ENCOUNTER 2024-06-23 11:00 | Outpatient (CLI) | payer MEDICARE, OTHER, SELFPAY ==
--- NOTE | 2024-06-23 11:02 | MM_ITS ---
WS: [email or web address] BILATERAL SCREENING DIGITAL TOMOSYNTHESIS MAMMOGRAM WITH CAD HISTORY: SCREENING COMPARISON: 06/16/2023, 06/11/2022 Bilateral CC and MLO views with tomosynthesis and synthetic mammography submitted. Computer aided det ection analyzed. Breast composition: There are scattered areas of fibroglandular density. No suspicious masses, microc alcifications or architectural distortion. Fat-containing hamartoma in the anterior RIGHT breast is s table. MM/MM scr BI tomosynthesis [id number] IMPRESSION: BI-RADS: 2 - Benign. FOLLOW UP: 1 Year Follow-up
== END 2024-06-23 11:01 | disposition home or self-care (01) ==
PROVIDERS: PCP Family Medicine; Visit Provider Family Medicine
DX: Z12.31 Encounter for screening mammogram for malignant neoplasm of breast (principal); R92.323 Mammographic fibroglandular density, bilateral breasts; R92.8 Other abnormal and inconclusive findings on diagnostic imaging of breast
CPT/HCPCS: 77063; 77067

== ENCOUNTER → 2024-07-28 10:28 | Outpatient (BNVA) | payer MEDICARE, OTHER, SELFPAY | PROVIDERS: PCP Family Medicine; Visit Provider Family Medicine | DX: E78.5 Hyperlipidemia, unspecified (principal) | CPT/HCPCS: 80053; 80061; 85025; 86140 ==

== ENCOUNTER → 2024-10-28 08:04 | Outpatient (BNVA) | payer MEDICARE, OTHER, SELFPAY | PROVIDERS: PCP Family Medicine; Visit Provider Family Medicine | DX: E03.9 Hypothyroidism, unspecified (principal) | CPT/HCPCS: 84443 ==

== ENCOUNTER → 2024-11-28 16:40 | Outpatient (BNVA) | payer MEDICARE, OTHER, SELFPAY | PROVIDERS: PCP Family Medicine; Visit Provider Family Medicine | DX: E78.5 Hyperlipidemia, unspecified (principal) | CPT/HCPCS: 87426 ==

== ENCOUNTER → 2025-01-17 08:36 | Outpatient (BNVA) | payer MEDICARE, OTHER, SELFPAY | PROVIDERS: PCP Family Medicine; Visit Provider Surgery | DX: Z12.11 Encounter for screening for malignant neoplasm of colon (principal) | CPT/HCPCS: 99024; 99204 ==

== ENCOUNTER → 2025-01-30 08:36 | Outpatient (BNVA) | payer MEDICARE, OTHER, SELFPAY | PROVIDERS: PCP Family Medicine; Visit Provider Anesthesiology Pain Medicine | DX: M54.2 Cervicalgia (principal); G89.29 Other chronic pain; M54.9 Dorsalgia, unspecified; M25.569 Pain in unspecified knee; M54.12 Radiculopathy, cervical region; M54.16 Radiculopathy, lumbar region; M06.9 Rheumatoid arthritis, unspecified | CPT/HCPCS: 99214 ==

== ENCOUNTER 2025-02-01 14:56 | Outpatient (CLI) | payer MEDICARE, OTHER, SELFPAY ==
--- NOTE | 2025-02-01 15:15 | MR_ITS ---
WS: [email or web address] MRI CERVICAL SPINE NONCONTRAST TECHNIQUE: Sagittal T1, T2 and STIR imaging. Axial T2, gradient, and fiesta imaging. CLINICAL INFORMATION: M54.12 - Radiculopathy, cervical region COMPARISON: 2020 FINDINGS: Straightening of the normal cervical lordosis. Disc bulging worse at C4-C6. Cord signal is normal. Disc bulging is similar to 2021. C2-C3: Normal. C3-C4: Mild facet arthropathy. Mild LEFT bony foraminal narrowing. C4-C5: Mild disc bulge with endplate ridging. Moderate facet arthropathy. Moderate LEFT greater than RIGHT bony foraminal narrowing. C5-C6: Disc osteophyte complex with small central protrusion. Mild central canal stenosis. Slight contact of the cervical cord. Moderate to severe LEFT and moderate RIGHT bony foraminal narrowing. Moderate facet arthropathy. C6-C7: Shallow central disc osteophyte protrusion. Mild central canal stenosis. Slight contact of the cervical cord. Severe LEFT bony foraminal narrowing. Mild RIGHT foraminal narrowing. C7-T1: Shallow RIGHT paracentral disc protrusion. Slight contact of the cervical cord. Spinal canal is patent. Mild bilateral bony foraminal narrowing. Mild facet arthropathy. Visualized brain stem structures: Normal. Prevertebral soft tissues: Normal. Partially visualized nodular thyroid MR/MR cervical spin wo con* [id number] IMPRESSION: 1. Mild central canal stenosis due to shallow central disc osteophyte protrusi ons at C5-C6 and C6-C7. Central canal stenosis appears stable to previous 2. Moderate to severe bony foraminal narrowing worse at LEFT C4-5, LEFT greate r than RIGHT C5-C6, and LEFT C6-7. Foraminal narrowing progressed since 2020 3. Cord signal is normal.
== END 2025-02-01 14:57 | disposition home or self-care (01) ==
LOC: RAD 14:59
PROVIDERS: PCP Family Medicine; Visit Provider Anesthesiology Pain Medicine
DX: M47.22 Other spondylosis with radiculopathy, cervical region (principal); M48.02 Spinal stenosis, cervical region; M50.223 Other cervical disc displacement at C6-C7 level; M50.322 Other cervical disc degeneration at C5-C6 level
CPT/HCPCS: 72141

== ENCOUNTER → 2025-02-06 14:16 | Outpatient (BNVA) | payer MEDICARE, OTHER, SELFPAY | PROVIDERS: PCP Family Medicine; Visit Provider Anesthesiology Pain Medicine | DX: M54.2 Cervicalgia (principal); G89.29 Other chronic pain | CPT/HCPCS: 99214 ==

== ENCOUNTER 2025-02-15 06:36 | Day surgery (SDC) | payer MEDICARE, OTHER, SELFPAY ==
[2025-02-15 06:45] VITALS: BP 144/70; PULSE 87; RESP 16; TEMP 36.5; O2SAT 96; BMI 25.4
--- NOTE | 2025-02-15 06:58 | ANES.PREANE2 ---
Pre-Anesthetic Assessment Height/Weight: Height 1.63 m Weight 67.132 kg Temp Pulse Resp BP Pulse Ox O2 Del Method 97.7 F 87 16 144/70 96 Room Air 02/15/25 06:45 02/15/25 06:45 02/15/25 06:45 02/15/25 06:45 02/15/25 06:45 02/15/25 06:45 Operation Date: 02/15/25 07:40 Proposed Procedures p Colonoscopy [id number] G0105 Z12.11(Not Applicable) - Jorge Alberto Ramirez MD Last intake: Intake Last Liquid Date 02/14/25 Last Liquid Time 22:30 Last Solid Date 02/13/25 Last Solid Time 20:00 Social No alcohol and No tobacco Exam alert, oriented x 3, clear to auscultation bilaterally and regular rate & rhythm Airway Submandibular: within normal limits Cervical ROM: within normal limits Mallampati: Class II Dentition: chipped (front left tooth) History/ROS No significant history except as noted Pulmonary None reported CV/HEM None reported None reported Hepatic None reported GI None reported Metabolic Hyperlipidemia Neuropsych Headache and None reported Anesthetic Plan ASA status: 2 Anesthesia: MAC Medications/Allergies Home Medications ?Medication ?Instructions ?Recorded ?Confirmed ?Last Taken ?Type lifitegrast 5 % eye drops in a 1 drp ophthalmic (eye) BID 10/29/23 02/09/25 02/15/25 05:45 History dropperette (Xiidra) Sole supports #1 ea 11/25/23 02/09/25 Unknown Rx gabapentin 600 mg tablet 600 mg PO TID #270 tabs 02/04/24 02/09/25 02/14/25 21:30 Rx ondansetron 8 mg disintegrating 8 mg PO Q8H PRN nausea and 01/17/25 02/09/25 Unknown Rx tablet vomiting #3 tabs cyclobenzaprine 10 mg tablet 10 mg PO ONCE #30 tabs 01/30/25 02/09/25 Unknown Rx ezetimibe 10 mg tablet 10 mg PO DAILY 02/09/25 02/09/25 02/14/25 21:30 History Allergies Allergy/AdvReac Type Severity Reaction Status Date / Time Latex, Natural Rubber Allergy Mild red bloches Verified 02/15/25 06:50 adhesive tape Allergy ALGY-Rash Verified 02/15/25 06:50 carbamazepine (From Tegretol) AdvReac Severe ADV-Weaknes Verified 02/15/25 06:50 s atorvastatin AdvReac Intermediate myalgia Verified 02/15/25 06:50 oxycodone AdvReac Intermediate vomiting Verified 02/15/25 06:50 hydrocodone AdvReac Unknown GI upset Verified 02/15/25 06:50 Current Medications Generic Name Dose Route Start Last Admin Trade Name Freq PRN Reason Stop Dose Admin Sodium Chloride 1,000 mls @ 15 mls/hr 02/15/25 06:39 02/15/25 06:56 Sodium Chloride 0.9% IV 02/16/25 06:38 15 mls/hr .Q24H PRN Administration COLONOSCOPY FLUIDS PFSH Anesthesia Medical History Hyperlipidemia H/O thyroid cyst Goiter removed in 02/2021 Hand pain High risk medication use Hx of thyroid nodule History of nonmelanoma skin cancer No pertinent past medical history Denies diabetes, asthma, hypertension, seizures, DVT/PE. PCP: Dr. Dyer Surgical History Hx of sinus surgery History of uvulectomy S/P inguinal hernia repair Right sided inguinal hernia repair in 1980 S/P section x2-----1978 and 1981---------> first was viral vertical infraumbilical incision and the second one was a Pfannenstiel incision. S/P tubal ligation Done at time of second in 1981 S/P hysterectomy She had an ABDOMINAL SUPRACERVICAL HYSTERECTOMY WITH BILATERAL SALPINGO-OOPHORECTOMY for fibroids done in [place] in 2002. She states that after discharge she developed pain and bleeding and required multiple blood transfusions and 4 days after her hysterectomy had to be reopened to stop bleeding. She remained in the hospital for about 2 weeks after that with complications in terms of healing and bleeding. She states that a supracervical hysterectomy was performed. Denies any malignancy identified at the time of surgery. Surgery was performed via vertical midline incision. -------> history and physical note from Dr. Odessa Mina obtained-patient had and 15 x 5.6 x 8 cm uterus with menorrhagia causing anemia with a hemoglobin of 9-10. Operative report was reviewed and supracervical abdominal hysterectomy with bilateral salpingo-oophorectomy was performed. Although patient had wanted her cervix removed a supracervical procedure was performed and the endocervical canal was cauterized with the Bovie. --- >Pathology showed a 292 g uterine corpus with multiple fibroids, fetus cystadenofibroma in the right ovary, bilateral tubes showed no diagnostic abnormality and the left ovary showing no diagnostic abnormality S/P exploratory laparotomy 12/08/2002---exploratory laparotomy was done secondary to hemoperitoneum identified after the hysterectomy. Postoperative patient had significant drop in hemoglobin and nausea and as a result exploratory laparotomy was performed. The right round ligament had bleeding which was ligated. No active bleeding was noted elsewhere. The abdomen was irrigated and cleaned of clots and blood and patient was taken to the operating room. --------> these records have been scanned into the computer. H/O repair of rotator cuff Left rotator cuff repair in 2008 Family History Mother Hyperlipidemia Brother Hyperlipidemia Diabetes Father Heart disease Denies family history of Colon cancer Ovarian cancer Breast cancer Hypertension Uterine cancer Thyroid disease Social History Smoking and tobacco/nicotine status: never used tobacco/nicotine Second hand smoke exposure: No
--- NOTE | 2025-02-15 07:02 | P.HPUD_ITS ---
Surgery/Procedure H&P Update DATE OF PROCEDURE: February 15, 2025 DATE H&P PERFORMED: 01/17/25 H&P UPDATE INFORMATION: I have reviewed H&P completed within last 30 days, I have examined patient prior to procedure, No changes to prior documentation, H&P is in [facility] EMR on date indicated and Risks and benefits of the procedure reviewed PLANNED PROCEDURE: Operation Date: 02/15/25 07:40 Proposed Procedures p Colonoscopy 77507 G0105 Z12.11(Not Applicable) - Jorge Alberto Ramirez MD
[2025-02-15 07:43] VITALS: BP 138/79; PULSE 83; RESP 20; TEMP 36.1; O2SAT 98
[2025-02-15 07:57] VITALS: BP 141/84; PULSE 78; RESP 17; O2SAT 96
--- NOTE | 2025-02-15 08:10 | ANE.PACU2 ---
Inpatient post-anesthesia follow up: Airway intact: Yes Vital signs: Temperature 97.0 F Pulse Rate 78 Respiratory Rate 17 Blood Pressure 141/84 Pulse Oximetry 96 Oxygen Delivery Me thod Room Air Oxygen Flow Rate Fraction of Inspir ed Oxygen Hydration adequate: Yes Nausea and vomiting: No Pain level: 1 Mental status: Baseline
== END 2025-02-15 08:12 | disposition home or self-care (01) ==
PROVIDERS: PCP Family Medicine; Visit Provider Surgery
PROC: 0DJD8ZZ Inspection of Lower Intestinal Tract, Via Natural or Artificial Opening Endoscopic (ICD-10-PCS; CPT 45378; principal; 2025-02-15 07:40)
DX: Z12.11 Encounter for screening for malignant neoplasm of colon (principal); K57.30 Diverticulosis of large intestine without perforation or abscess without bleeding; E78.5 Hyperlipidemia, unspecified
CPT/HCPCS: G0121; J2405; J2704; J3490; J7030

== ENCOUNTER 2025-02-22 10:34 | Outpatient (RCR) | payer MEDICARE, OTHER, SELFPAY | END 2025-03-14 23:59 | disposition home or self-care (01) | LOC: SPT 10:34 | PROVIDERS: PCP Family Medicine; Visit Provider Anesthesiology Pain Medicine | DX: M54.12 Radiculopathy, cervical region (principal); G89.29 Other chronic pain; M54.2 Cervicalgia | CPT/HCPCS: 97110; 97140; 97161; 97530 ==

== ENCOUNTER 2025-03-15 06:30 | Outpatient (RCR) | payer MEDICARE, OTHER, SELFPAY | END 2025-03-27 09:36 | disposition home or self-care (01) | LOC: SPT 06:30 | PROVIDERS: PCP Family Medicine; Visit Provider Anesthesiology Pain Medicine | DX: M54.2 Cervicalgia (principal) | CPT/HCPCS: 97110; 97140 ==

== ENCOUNTER 2025-05-12 11:01 | Outpatient (CLI) | payer MEDICARE, OTHER, SELFPAY ==
--- NOTE | 2025-05-12 11:15 | USR_ITS ---
PROCEDURE INFORMATION: Exam: US Soft Tissue Head and Neck, Thyroid Exam date and time: 05/12/2025 11:14 AM Age: 70 years old Clinical indication: Condition or disease; Thyroid disorder; Other: Nodule; Additional info: Thyroid nodule TECHNIQUE: Imaging protocol: Real-time ultrasound scan of the neck with image documentation. Exam focused on the thyroid. COMPARISON: US thyroid [id number] 10/03/2020 8:54 AM FINDINGS: Right thyroid lobe: Status post right thyroidectomy. No distinct residual thyroid tissue identified in the right thyroid bed. Left thyroid lobe: Normal echotexture of the thyroid gland. The left lobe measures 5.1 x 2.7 x 1.4 cm. A large nodule is identified in the inferior left pole measuring 1.5 x 1.7 x 2.7 cm. Appears solid, isoechoic-mildly hypoechoic, taller than wide, with internal punctate echogenic focus at smooth margins. TI-RADS 5. An additional nodule measuring 4 x 6 mm is present in the anterior left thyroid, appearing mixed cystic and solid, hypoechoic with smooth margins and no internal echogenic foci. TI-RADS 3. Additional nodule measuring 2 x 3 mm. Appears solid, very hypoechoic, with smooth margins and no internal echogenic foci. TI-RADS 4. Isthmus: The isthmus measures 3 mm in thickness. US/US thyroid [id number] IMPRESSION: 1. 2.7 cm TI-RADS 5 nodule in the left inferior pole. Highly suspicious for malignancy until proven otherwise. Meets criteria for FNA. 2. 6 mm TI-RADS 3 nodule does not meet criteria for follow-up or FNA. 3. 3 mm TI-RADS 4 nodule does not meet criteria for follow-up or FNA. 4. Status post right thyroidectomy. No distinct residual thyroid tissue identified in the right thyroid bed.
== END 2025-05-12 11:02 | disposition home or self-care (01) ==
LOC: RAD 11:02
PROVIDERS: PCP Family Medicine; Visit Provider Family Medicine
DX: E04.1 Nontoxic single thyroid nodule (principal); E89.0 Postprocedural hypothyroidism
CPT/HCPCS: 76536

== ENCOUNTER → 2025-05-18 09:15 | Outpatient (BNVA) | payer MEDICARE, OTHER, SELFPAY | PROVIDERS: PCP Family Medicine; Visit Provider Nurse Practitioner Family | DX: L72.0 Epidermal cyst (principal); L82.1 Other seborrheic keratosis; L57.8 Other skin changes due to chronic exposure to nonionizing radiation; L81.4 Other melanin hyperpigmentation; D18.01 Hemangioma of skin and subcutaneous tissue; Z08 Encounter for follow-up examination after completed treatment for malignant neoplasm; Z85.828 Personal history of other malignant neoplasm of skin; D48.5 Neoplasm of uncertain behavior of skin; L57.0 Actinic keratosis | CPT/HCPCS: 11102; 17000; 99213 ==